=== PATIENT | female | born 1960 | race Caucasian/White ===

== ENCOUNTER → 2020-02-09 11:49 | Outpatient (CLI) | payer MEDICARE, SELFPAY ==
[2020-02-09 12:53] LABS: Add Manual Diff / Slide Review NO; Basophils Absolute Auto 0 /uL (0-100); Basophils Percent Auto 0.3 % (0-2); Eosinophils Absolute Auto 0 /uL (0-450); Eosinophils Percent Auto 0.3 % (2-4); Hematocrit 44.1 % (36-46); Hemoglobin 15.3 g/dL (12.0-16.0); Lymphocytes Absolute Auto 1300 /uL (1100-4500); Lymphocytes Percent Auto 22.4 % (25-40); Mean Corpuscular HGB Conc 34.7 % (30-36); Mean Corpuscular Hemoglobin 32.3 PG (26-34); Mean Corpuscular Volume 93.2 fL (80-100); Monocytes Absolute Auto 600 /uL (0-900); Monocytes Percent Auto 10.3 % (3-14); Neutrophils Absolute Auto 3800 /uL (1500-7000); Neutrophils Percent Auto 66.7 % (50-75); Platelet Count 183 X10^3/uL (150-400); Red Blood Cell Count 4.73 X10^6/uL (4.0-5.2); Red Cell Distribution Width 13.3 % (11.6-14.8); White Blood Cell Count 5.6 X10^3/uL (4.5-11.0)
[2020-02-09 13:15] LABS: Alanine Aminotransferase 19 IU/L (<35); Albumin 4.3 g/dL (3.5-5.0); Albumin Globulin Ratio 1.5 (1.0-2.8); Alkaline Phosphatase 95 U/L (38-126); Aspartate Aminotransferase 20 IU/L (14-36); BUN Creatinine Ratio 14.1 (6-22); Bilirubin Total 0.5 mg/dL (0.2-1.3); Blood Urea Nitrogen 10 mg/dL (7-17); Calcium 9.5 mg/dL (8.4-10.2); Carbon Dioxide 22 mmol/L (22-32); Chloride 103 mmol/L (98-107); Estimated Glomerular Filt Rate > 60.0 mL/min (>60); Globulin 2.8 g/dL (1.7-4.1); Glucose 108 mg/dL (80-110); HEMOLYSIS < 15 (0-50); Potassium 4.7 mmol/L (3.4-5.1); Sodium 135 mmol/L (137-145); Total Protein 7.1 g/dL (6.3-8.2)
[2020-02-09 13:34] LABS: TSH w/ Reflex to FT4 0.85 uIU/mL (0.47-4.68)
[2020-02-11 18:36] LABS: Deamidated Gliadin Ab IgA 3 units (0-19); Deamidated Gliadin Ab IgG 1 units (0-19); Immunoglobulin A,Qn 154 mg/dL (87-352); t-Transglutaminase IgA <2 U/mL (0-3)
== END ==
PROVIDERS: Family Provider Family Medicine; PCP Internal Medicine; Referring Provider Physician Assistant; Visit Provider Physician Assistant
DX: R19.7 Diarrhea, unspecified (principal); R19.8 Other specified symptoms and signs involving the digestive system and abdomen; Z83.79 Family history of other diseases of the digestive system
CPT/HCPCS: 36415; 80053; 82784; 83516; 84443; 85025

== ENCOUNTER → 2020-02-13 10:49 | Outpatient (CLI) | payer MEDICARE, SELFPAY ==
[2020-02-13 13:33] LABS: Adenovirus F 40/41 Not Detected (Not Detect); Astrovirus Not Detected (Not Detect); Campylobacter Not Detected (Not Detect); Clostridium difficile toxin AB Not Detected (Not Detect); Cryptosporidium Not Detected (Not Detect); Cyclospora cayetanensis Not Detected (Not Detect); Entamoeba histolytica Not Detected (Not Detect); Enteroaggregative E.coli Not Detected (Not Detect); Enteropathogenic E.coli Not Detected (Not Detect); Enterotoxigenic E.coli It/st Not Detected (Not Detect); Giardia lamblia Not Detected (Not Detect); Norovirus GI/GII Not Detected (Not Detect); Plesiomonsa shigelloides Not Detected (Not Detect); Rotavirus A Not Detected (Not Detect); Salmonella Not Detected (Not Detect); Sapovirus Not Detected (Not Detect); Shiga-like toxin-prod E.coli Not Detected (Not Detect); Shigella/Enteroinvasive E.coli Not Detected (Not Detect); Vibrio Not Detected (Not Detect); Vibrio cholerae Not Detected (Not Detect); Yersinia enterocolitica Not Detected (Not Detect)
== END ==
PROVIDERS: Family Provider Family Medicine; PCP Internal Medicine; Referring Provider Physician Assistant; Visit Provider Physician Assistant
DX: R19.7 Diarrhea, unspecified (principal)
CPT/HCPCS: 87507

== ENCOUNTER → 2020-03-13 09:52 | Outpatient (CLI) | payer MEDICARE, SELFPAY ==
[2020-03-13 10:46] LABS: BUN Creatinine Ratio 18.7 (6-22); Blood Urea Nitrogen 14 mg/dL (7-17); Calcium 9.6 mg/dL (8.4-10.2); Carbon Dioxide 22 mmol/L (22-32); Chloride 105 mmol/L (98-107); Cholesterol 180 mg/dL (140-199); Estimated Glomerular Filt Rate > 60.0 mL/min (>60); Glucose 114 mg/dL (80-110); HDL Cholesterol 30 mg/dL (40-60); HEMOLYSIS < 15 (0-50); LDL Cholesterol Calculated 100 mg/dL (<100); Sodium 137 mmol/L (137-145); Triglycerides 248 mg/dL (35-150)
[2020-03-13 12:13] LABS: TSH w/ Reflex to FT4 1.26 uIU/mL (0.47-4.68)
== END ==
PROVIDERS: Family Provider Family Medicine; PCP Internal Medicine; Referring Provider Internal Medicine; Visit Provider Internal Medicine
DX: I10 Essential (primary) hypertension (principal); Z13.220 Encounter for screening for lipoid disorders; E03.9 Hypothyroidism, unspecified
CPT/HCPCS: 36415; 80048; 80061; 84443

== ENCOUNTER → 2020-10-09 15:11 | Outpatient (CLI) | payer MEDICARE, SELFPAY ==
--- NOTE | 2020-10-09 15:14 | DI.MG.S_ITS ---
BILATERAL DIGITAL SCREENING MAMMOGRAM 3D/2D WITH CAD: 10/09/2020 CLINICAL: Routine screening. Comparison is made to exams dated: 10/06/2016 mammogram, 03/21/2013 mammogram, and 02/11/2010 mammogram - [facility]. The tissue of both breasts is predominantly fatty. Current study was also evaluated with a Computer Aided Detection (CAD) system. No significant masses, calcifications, or other findings are seen in either breast. There has been no significant interval change. IMPRESSION: NEGATIVE There is no mammographic evidence of malignancy. A 1 year screening mammogram is recommended. This exam was interpreted at Station ID: [id number]. NOTE: For mammograms, a report in lay terms will be sent to the patient. Approximately 15% of breast malignancies will not be visualized mammographically. In the management of a palpable breast mass, a negative mammogram must not discourage biopsy of a clinically suspicious lesion. Electronically Signed By: Melanie alvarez/ying:10/09/2020 16:44:09 letter sent: Normal Exam ACR BI-RADS Category 1: Negative [id number]
== END ==
PROVIDERS: Family Provider Family Medicine; PCP Internal Medicine; Referring Provider Internal Medicine; Visit Provider Internal Medicine
DX: Z12.31 Encounter for screening mammogram for malignant neoplasm of breast (principal); M85.852 Other specified disorders of bone density and structure, left thigh; Z78.0 Asymptomatic menopausal state; E07.9 Disorder of thyroid, unspecified; Z87.891 Personal history of nicotine dependence
CPT/HCPCS: 77063; 77067; 77080

== ENCOUNTER → 2021-02-26 13:34 | Outpatient (CLI) | payer MEDICARE, SELFPAY ==
[2021-02-26 13:42] LABS: Bacteria Urine None Seen; WBC Urine None Seen (0-5/HPF)
[2021-02-26 14:43] LABS: Appearance Urine UA CLEAR; Bilirubin Urine UA NEGATIVE (NEGATIVE); Color Urine UA YELLOW; Glucose Urine UA NEGATIVE (Negative); Ketones Urine UA NEGATIVE (NEGATIVE); Leukocyte Esterase Urine UA NEGATIVE (NEGATIVE); Nitrite Urine UA NEGATIVE (Negative); Occult Blood Urine UA 1+ (Negative); Protein Urine UA TRACE (Negative); Urobilinogen Urine UA 0.2 E.U./dL (0.2)
[2021-02-26 14:49] LABS: Culture Indicated Urine Cult Not Indicated; Mucus Urine 1+ (Negative); RBC Urine 5-10/HPF (0-5/HPF); Squamous Epithelial Cell Urine 10-30 /HPF (0-5/HPF)
== END ==
PROVIDERS: Family Provider Family Medicine; PCP Internal Medicine; Referring Provider Internal Medicine; Visit Provider Internal Medicine
DX: R30.0 Dysuria (principal)
CPT/HCPCS: 81001

== ENCOUNTER → 2021-08-12 12:25 | Outpatient (CLI) | payer MEDICARE, SELFPAY ==
--- NOTE | 2021-08-12 13:52 | DI.CT.S_ITS ---
PROCEDURE: CT ABDOMEN PELVIS W CON INDICATIONS: LOWER ABDOMINAL PAIN TECHNIQUE: After the administration of oral and IV contrast, axial sections were acquired from the lung bases to the pubic symphysis. Coronal and sagittal reformats were performed. For radiation dose reduction, the following was used: automated exposure control, adjustment of mA and/or kV according to patient size. COMPARISON: [facility], CT, ABD/PELVIS W/CON (PNL), 01/19/2014, 23:49. FINDINGS: Image quality: Excellent. Lung bases: Unremarkable. Heart: No significant findings. ABDOMEN: Liver: There are several ill-defined hypodensities of varying sizes throughout the liver, the larger measuring 2.9 cm in the lateral right hepatic lobe, and the largest in the left hepatic lobe measuring 2.1 cm. One of the lesions in segment III demonstrates peripheral puddling of contrast, and the other at are relatively hypodense postcontrast during the arterial phase. Gallbladder: There is Phrygian cap morphology. Normal wall thickness. Biliary ducts: Nondilated. Pancreas: Normal. Spleen: Normal size. Adrenal Glands: No nodules. Kidneys and Ureters: Normal enhancement. No hydronephrosis or hydroureter. Stomach and Bowel: Stomach, small bowel loops, and colon are unremarkable. The appendix is absent. Peritoneum: No abnormal intraperitoneal fluid. No free air. Ventral Wall: There are three small fat containing ventral hernias including an umbilical hernia in the midline. Abdominal Nodes: No retroperitoneal or mesenteric adenopathy by size criteria. Vessels: Aorta and inferior vena cava are normal in size. PELVIS: Pelvic Organs: Normal uterus and ovaries. Bladder: Normal wall thickness. Pelvic Nodes: No enlarged lymph nodes. Miscellaneous: No inguinal hernias are seen. Bones: There are severe degenerative disc changes throughout the lumbar spine and moderate endplate spurs at the L2-3 level. IMPRESSION: 1. No explanation for lower abdominal pain on the study. 2. There is been slight enlargement of several irregular hepatic hypodensities which have been otherwise relatively stable since 2013 suggesting benign etiology. The enhancement of one is most suggestive of a cavernous hemangioma. Dictated by: Melanie Bowman M.D. on 08/12/2021 at 14:49 Approved by: Melanie Bowman M.D. on 08/12/2021 at 15:02
== END ==
PROVIDERS: Family Provider Family Medicine; PCP Internal Medicine; Referring Provider Internal Medicine; Visit Provider Internal Medicine
DX: R10.30 Lower abdominal pain, unspecified (principal); K43.9 Ventral hernia without obstruction or gangrene
CPT/HCPCS: 74177

== ENCOUNTER 2022-01-24 10:30 | Outpatient (RCR) | payer OTHER, SELFPAY ==
--- NOTE | 2022-01-03 16:48 | PT.OPPOC ---
Physical, Occupational & Speech Therapy At [facility] Current Diagnoses Muscle weakness (generalized) (01/24/22) Other specified disorders of muscle (01/24/22) Mixed incontinence (01/24/22) Pelvic and perineal pain (01/24/22) Visit Care Team Role Provider Type Radha Weinberg MD Primary Care Provider Physician Specialty: Internal Medicine Address: [address] [place] [address], [address] Email: [email or web address] Gopi Jenkins DO Family Provider Non-Staff Specialty: Medical Address: [address] [place] [address], [address] Email: Ann Lowrey MD Attending Provider Physician Referring Provider Specialty: LAMINATOR PREFORMS Address: [address] [place] [address], [address] Email: [email or web address] Plan Of Care PT-OP-T Assessment and Plan Start: 01/02/22 17:42 Freq: Status: Active Protocol: Document 01/28/22 18:47 LRN (Rec: 01/03/22 10:40 LRN [id number]) Physical Therapy Assessment Rehab Potential Rehabilitation Potential Good Evaluation Complexity Number of Personal Factors/Comorbidities 3 or More Number of Body Systems Impaired 4 or More Clinical Presentation at Evaluation Evolving Impairments Impairments Activity Tolerance,Pain, Posture,ROM,Soft Tissue Mobility,Strength,Transfers Other Impairments Fecal incontinence, sometimes urinary incontinence Goals Four Impairment Stool/urine incontinence Short Term Goal (STG) To be able to leave house for extended periods of 1/2 hour or more without fear of having a need to have a BM and secondary urinary leakage. STG Duration 02/17/22 Auto Dealership Porter Goal (LTG) Reduce or eliminate symptoms of the PFDI-20 LTG Duration 04/03/22 Three Impairment PF/Lower Abdominal Pain rated 5/10 Short Term Goal (STG) Pt will understand the role of constipation & intra abdominal pressure changes on pelvic relaxation, and educated in a HEP of PF relaxation ex's. STG Duration 01/24/22 Intermediate Goal (LTG) Improve STM of lower abdomin/ PF to decrease lower abdomin/ PF pain to no greater than 2/ 10 on a HEP of abdominal strengthening program. LTG Duration 04/03/22 Two Impairment Abdominal weakness Short Term Goal (STG) Pt will be able to coordinate PF with thoracic diaphragm/ functional activities that cause symptoms of stool/urine incontinence. STG Duration 02/07/22 Intermediate Goal (LTG) Improve Abdominal/trunk & LE strength for optimal organ support with pt able to return to gym exercise. LTG Duration 04/03/22 One Impairment Lacks appropriate self care HEP Short Term Goal (STG) Pt will be educated in management of changes in intraabdominal pressure with appropriate PF muscle activation. STG Duration 01/17/22 Intermediate Goal (LTG) Pt will be able to manage symptoms with a HEP and behavioral techniques, and will be able to return to exercise (gentle yoga) with modifications as needed for managment of her fibromyalgia. LTG Duration 04/03/22 Assessment Summary Assessment Pt presents with reported improvement in her symptoms the past 1-2 months with the changing of her diet. She is not having urinary incontinence except she reports when her bladder is full. Her primary complaint is of potential fecal incontinence first in the morning and with a strong urge if she is not able to make it to the bathroom in time. The pt was red and tender in the perineum and did not tolerate internal assessment. She was not able to relax her pelvic floor for assessment. The vaginal opening tissues were red and very tender to light palpation. She did present tight and guarded and based on her subjective history it is expected that her GI system is greatly impacting her lower abdominal pain. Until I am able to relax her PF muscles, further assessment of involvement of PF weakness or tightness is deferred. The pt would benefit from treatment of the red and angry tissues at her vaginal opening and external perineum. The pt will benefit from skilled physical therapy to work towards achieving the above stated goals. Physical Therapy Plan Frequency and Duration Frequency of Treatment 1x/Week Plan of Care Start Date 01/03/22 Plan of Care End Date 04/03/22 Therapeutic Interventions Therapeutic Interventions Aquatic Therapy,Home Exercise Program,Joint Mobilizations, Manual Therapy,Neuromuscular Re-education,Patient/Caregiver Education,Self-Care/Home Management,Soft Tissue Mobilization,Therapeutic Activities,Therapeutic Exercises Modalities Biofeedback,Cold Pack/Ice Massage,Electric Stimulation, Hot Packs Next Visit Focus/Plan Next Note Type Treatment Note Next Visit Plan Manual therapy for lower abdominal/PF and STM to decreased tightness and pain. Pt education/ADL training: PF anatomy & function, bladder health & defecation/ micturition training. Therapeutic ex instruction for the PF/LE and trunk muscles with and without EMG biofeedback. Kinetic activities and neuromuscular reeducation to improve functional use of the PF in tasks that cause symptoms. Posterior PF strengthening. Plan of Care Dates Plan of Care Start Date 01/03/22 Plan of Care End Date 04/03/22 Electronically Signed by: Samira Reed, PT 01/28/22 [id number] If you are in agreement with this Plan of Care, please return a signed and dated copy. I have reviewed this Plan of Care and certify that the skilled therapy services above are required to meet the patient?s needs. Physician Signature Date Printed Name and Credentials Clinical Instructor Signature Printed Name and Credentials
--- NOTE | 2022-01-03 16:48 | PT.OIE ---
Current Diagnoses Muscle weakness (generalized) (01/24/22) Other specified disorders of muscle (01/24/22) Mixed incontinence (01/24/22) Pelvic and perineal pain (01/24/22) Visit Care Team Role Provider Type Radha Weinberg MD Primary Care Provider Physician Specialty: Internal Medicine Address: [address] [place] [address], [address] Email: [email or web address] Gopi Jenkins DO Family Provider Non-Staff Specialty: Medical Address: [address] [place] [address], [address] Email: Ann Lowery MD Attending Provider Physician Referring Provider Specialty: LYE PEEL OPERATOR Address: [address] [place] [address], [address] Email: [email or web address] Physical Therapy Initial Evaluation PT-OP-A Visit Information Start: 01/02/22 17:42 Freq: Status: Active Protocol: Document 01/28/22 18:47 LRN (Rec: 01/03/22 10:40 LRN [id number]) Out-Patient Physical Therapy Visit Information Visit Information Visit Type Initial Evaluation Visit Start Time 09:47 Visit Stop Time 10:39 Total Visit Minutes 52 Visit Number 1 Evaluation Information Evaluation Date 01/03/22 Precautions Precautions Arthritis, Fibromyalgia, Hemmorrhoids, arthritis, Osteopenia & some Osteoporosis in R hip, 3 level neck fusion (C3-C6), myomectomy fibroids removed - 1996, pilonidal cysts - early 1989', Controlled HBP, thyroid and parathyroid's removed in 2015 with a small cancer spot. PT-OP-B Current Condition Start: 01/02/22 17:42 Freq: Status: Active Protocol: Document 01/28/22 18:47 LRN (Rec: 01/03/22 10:40 LRN [id number]) Current Condition History of Current Condition Onset Date 06/2021 Current Complaints Pelvic pain History of Current Condition Was bleeding with bowel movements and CT scan showed everything was fine, but nothing improved. Tried elimination diet, but didn't help. Incontinence problem happened in Oct. and still had bloody stools, now thought due to hemorrhoids. Urinary incontinence is better, has primarily in morning. Bowel movement urge with stool incontinence if not able to get to bathroom (BR) right away (has had a couple times stool incontinence). Her lower abdominal pain and bowel urgency is worse first in the morning. Lifting is when abdomen hurts most. Her stomach inside feels swollen. She was told her endometrial lining is bigger than normal. Pt has had 1 vaginal and 1 C- section experience. Pt is R hand dominant. Prior Treatments and Tests Cancer test: negative. Self treatment of fiber and diet is helping. Future Testing and Treatments Planned None planned Developmental History Developmental History February 2020 End of Apr 2020 was walking and had problem with R hip and after a hike couldn't lift leg to apply brakes. She then stopped driving and instead went to pool to exercise and was swimming and doing gentle yoga. She then started to have trouble with incontinence of urine and stool. Treatment Goals Patient/Caregiver Goals Pt goals: To be able to leave house for extended periods of 1/2 hour or more without fear of having a need to have a BM and secondary urinary leakage. Learn ex to strength abdomen to return to ex at local gym Resume ex for managment of her fibromyalgia (gentle yoga class) Prior Functional Status Baseline Function- ADL's Independent Baseline Function- Mobility Independent Baseline Function- Recreation/Hobbies At most 3x/week: Gentle yoga class 2x/week, Pool 1x/week. Walking 1/2 mile 2x/week, working up to 2 miles 2x/week. Current Functional Impairments (Reported) Functional Limitations- ADL's Stopped yoga and pool ex for fear of fecal and urinary incontinence. Personal Factors Other Personal Factors That May Effect Fibromyalgia, Hemmorrhoids, Therapy/Recovery anxiety controlled by meds, osteoarthritis w/meds, 3 level neck fusion (C3-C6), myomectomy fibroids removed - 1996, pilonidal cysts - early 1989's, thyroid and parathyroid's removed in 2016 with a small cancer spot. PT-OP-C Subjective Start: 01/02/22 17:42 Freq: Status: Active Protocol: Document 01/28/22 18:47 LRN (Rec: 01/03/22 10:40 LRN [id number]) Patient Questionnaires Oswestry Low Back Index Oswestry Score 36 Oswestry Impairment 20 to 39% Impaired (Score 20- 39) Pelvic Pain and Urgency/Frequency Patient Symptom Scale Pelvic Pain Score 11 OP-PT Pain Assessment Location Neck Pain Location Details Posterior neck Intensity 5 Scale Used Numeric (0 - 10) Description Aching Lower abdomen Pain Location Details Across lower abdomen, worst first in AM Intensity 3 Scale Used Numeric (0 - 10) Description Aching Description- Other Like menstrual cramps Frequency Constant Variations/Patterns Intensity changes, more after BM. Pain Alleviating Factors Heat Low back Pain Location Details Low back, self fused L4-L5 Intensity 5 Frequency Constant PT-OP-I Pelvic Floor Start: 01/02/22 17:42 Freq: Status: Active Protocol: Document 01/28/22 18:47 LRN (Rec: 01/03/22 10:40 LRN [id number]) Pelvic Floor Assessment Urine Pelvic Floor Surgery No Other Urinary Symptoms Not leaking anymore, was 1-2 months ago Other Leakage Causes Sometimes if bladder is full. Leaks Per Day 0 Nocturia 2 Pads Used In 24 Hours Not anymore. Bowel Bowel Symptoms Fecal Leakage,Pain Other Bowel Symptoms Sometimes pain/cramping in abdomen Bowel Movement Frequency 2 [place] Stool Chart Type 1-7 4 Comments Pelvic Floor Comments Too tener to palpate external and jsut intoernal. PT-OP-J Posture/Palpation/Skin Start: 01/02/22 17:42 Freq: Status: Active Protocol: Document 01/28/22 18:47 LRN (Rec: 01/03/22 10:40 LRN [id number]) Posture Evaluation Position Standing L-Spine Posture Increased Lordosis Comments Posture Comments Dowagers Hump, L breast low. PT-OP-K Range of Motion Start: 01/02/22 17:42 Freq: Status: Active Protocol: Document 01/28/22 18:47 LRN (Rec: 01/03/22 10:40 LRN [id number]) Lumbar Spine Range of Motion Lumbar Spine Active Degrees Testing Position Standing Flexion 45 Extension 15 Rotation Left 20 Rotation Right 20 Lateral Flexion Left 0 Lateral Flexion Right 5 ROM Limitations Soft Tissue Tightness,Pain Hip Goniometric Range of Motion Hip Right Passive Testing Position Supine Straight Leg Raise 70 Internal Rotation 45 External Rotation 65 Left Passive Testing Position Supine Straight Leg Raise 90 Internal Rotation 25 External Rotation 65 PT-OP-M Strength Start: 01/02/22 17:42 Freq: Status: Active Protocol: Document 01/28/22 18:47 LRN (Rec: 01/03/22 10:40 LRN [id number]) Trunk Strength Trunk Manual Muscle Testing Core Stabilization Lacks poor core stability. Hip Strength Hip Manual Muscle Testing Right Flexion (L2) 4- Good- Abduction 5 Normal External Rotation 5 Normal Internal Rotation 5 Normal Left Flexion (L2) 3 Fair Adduction 1 Trace External Rotation 3+ Fair+ Internal Rotation 5 Normal PT-OP-Q Treatments Start: 01/02/22 17:42 Freq: Status: Active Protocol: Document 01/28/22 18:47 LRN (Rec: 01/03/22 10:40 LRN [id number]) Self-Care/Home Management Treatment Education Other Education Discussed results of evaluation, goals, and plan of care (POC). Pt agreeable to goals and POC. Pt educated in use of Bladder Diary and I/S in tracking for 1 week. Discussed use of 2 different diaries for tracking of bladder. PT-OP-T Assessment and Plan Start: 01/02/22 17:42 Freq: Status: Active Protocol: Document 01/28/22 18:47 LRN (Rec: 01/03/22 10:40 LRN [id number]) Physical Therapy Assessment Rehab Potential Rehabilitation Potential Good Evaluation Complexity Number of Personal Factors/Comorbidities 3 or More Number of Body Systems Impaired 4 or More Clinical Presentation at Evaluation Evolving Impairments Impairments Activity Tolerance,Pain, Posture,ROM,Soft Tissue Mobility,Strength,Transfers Other Impairments Fecal incontinence, sometimes urinary incontinence Goals Four Impairment Stool/urine incontinence Short Term Goal (STG) To be able to leave house for extended periods of 1/2 hour or more without fear of having a need to have a BM and secondary urinary leakage. STG Duration 02/17/22 Fdc Goal (LTG) Reduce or eliminate symptoms of the PFDI-20 LTG Duration 04/03/22 Three Impairment PF/Lower Abdominal Pain rated 5/10 Short Term Goal (STG) Pt will understand the role of constipation & intra abdominal pressure changes on pelvic relaxation, and educated in a HEP of PF relaxation ex's. STG Duration 01/24/22 [address] Supervisor Goal (LTG) Improve STM of lower abdomin/ PF to decrease lower abdomin/ PF pain to no greater than 2/ 10 on a HEP of abdominal strengthening program. LTG Duration 04/03/22 Two Impairment Abdominal weakness Short Term Goal (STG) Pt will be able to coordinate PF with thoracic diaphragm/ functional activities that cause symptoms of stool/urine incontinence. STG Duration 02/07/22 Fdc Goal (LTG) Improve Abdominal/trunk & LE strength for optimal organ support with pt able to return to gym exercise. LTG Duration 04/03/22 One Impairment Lacks appropriate self care HEP Short Term Goal (STG) Pt will be educated in management of changes in intraabdominal pressure with appropriate PF muscle activation. STG Duration 01/17/22 Fdc Goal (LTG) Pt will be able to manage symptoms with a HEP and behavioral techniques, and will be able to return to exercise (gentle yoga) with modifications as needed for managment of her fibromyalgia. LTG Duration 04/03/22 Assessment Summary Assessment Pt presents with reported improvement in her symptoms the past 1-2 months with the changing of her diet. She is not having urinary incontinence except she reports when her bladder is full. Her primary complaint is of potential fecal incontinence first in the morning and with a strong urge if she is not able to make it to the bathroom in time. The pt was red and tender in the perineum and did not tolerate internal assessment. She was not able to relax her pelvic floor for assessment. The vaginal opening tissues were red and very tender to light palpation. She did present tight and guarded and based on her subjective history it is expected that her GI system is greatly impacting her lower abdominal pain. Until I am able to relax her PF muscles, further assessment of involvement of PF weakness or tightness is deferred. The pt would benefit from treatment of the red and angry tissues at her vaginal opening and external perineum. The pt will benefit from skilled physical therapy to work towards achieving the above stated goals. Physical Therapy Plan Frequency and Duration Frequency of Treatment 1x/Week Plan of Care Start Date 01/03/22 Plan of Care End Date 04/03/22 Therapeutic Interventions Therapeutic Interventions Aquatic Therapy,Home Exercise Program,Joint Mobilizations, Manual Therapy,Neuromuscular Re-education,Patient/Caregiver Education,Self-Care/Home Management,Soft Tissue Mobilization,Therapeutic Activities,Therapeutic Exercises Modalities Biofeedback,Cold Pack/Ice Massage,Electric Stimulation, Hot Packs Next Visit Focus/Plan Next Note Type Treatment Note Next Visit Plan Manual therapy for lower abdominal/PF and STM to decreased tightness and pain. Pt education/ADL training: PF anatomy & function, bladder health & defecation/ micturition training. Therapeutic ex instruction for the PF/LE and trunk muscles with and without EMG biofeedback. Kinetic activities and neuromuscular reeducation to improve functional use of the PF in tasks that cause symptoms. Posterior PF strengthening.
--- NOTE | 2022-01-10 12:25 | PT.OTN ---
Current Diagnoses Muscle weakness (generalized) (01/10/22) Other specified disorders of muscle (01/10/22) Mixed incontinence (01/10/22) Pelvic and perineal pain (01/10/22) Physical Therapy Treatment Note PT-OP-A Visit Information Start: 01/02/22 17:42 Freq: Status: Active Protocol: Document 01/10/22 10:35 LRN (Rec: 01/10/22 12:24 LRN [id number]) Out-Patient Physical Therapy Visit Information Visit Information Visit Type Treatment Note Visit Start Time 10:35 Visit Stop Time 11:13 Total Visit Minutes 38 Visit Number 2 Evaluation Information Evaluation Date 01/03/22 Precautions Precautions Arthritis, Fibromyalgia, Hemmorrhoids, arthritis, Osteopenia & some Osteoporosis in R hip, 3 level neck fusion (C3-C6), myomectomy fibroids removed - 1996, pilonidal cysts - early 1989', Controlled HBP, thyroid and parathyroid's removed in 2015 with a small cancer spot. PT-OP-B Current Condition Start: 01/02/22 17:42 Freq: Status: Active Protocol: Document 01/03/22 09:47 LRN (Rec: 01/03/22 10:40 LRN [id number]) Current Condition History of Current Condition Onset Date 06/2021 Current Complaints Pelvic pain History of Current Condition Was bleeding with bowel movements and CT scan showed everything was fine, but nothing improved. Tried elimination diet, but didn't help. Incontinence problem happened in Oct. and still had bloody stools, now thought due to hemorrhoids. Urinary incontinence is better, has primarily in morning. Bowel movement urge with stool incontinence if not able to get to bathroom (BR) right away (has had a couple times stool incontinence). Her lower abdominal pain and bowel urgency is worse first in the morning. Lifting is when abdomen hurts most. Her stomach inside feels swollen. She was told her endometrial lining is bigger than normal. Pt has had 1 vaginal and 1 C- section experience. Pt is R hand dominant. Prior Treatments and Tests Cancer test: negative. Self treatment of fiber and diet is helping. Future Testing and Treatments Planned None planned Developmental History Developmental History February 2020 End of Apr 2020 was walking and had problem with R hip and after a hike couldn't lift leg to apply brakes. She then stopped driving and instead went to pool to exercise and was swimming and doing gentle yoga. She then started to have trouble with incontinence of urine and stool. Treatment Goals Patient/Caregiver Goals Pt goals: To be able to leave house for extended periods of 1/2 hour or more without fear of having a need to have a BM and secondary urinary leakage. Learn ex to strength abdomen to return to ex at local gym Resume ex for managment of her fibromyalgia (gentle yoga class) Prior Functional Status Baseline Function- ADL's Independent Baseline Function- Mobility Independent Baseline Function- Recreation/Hobbies At most 3x/week: Gentle yoga class 2x/week, Pool 1x/week. Walking 1/2 mile 2x/week, working up to 2 miles 2x/week. Current Functional Impairments (Reported) Functional Limitations- ADL's Stopped yoga and pool ex for fear of fecal and urinary incontinence. Personal Factors Other Personal Factors That May Effect Fibromyalgia, Hemmorrhoids, Therapy/Recovery anxiety controlled by meds, osteoarthritis w/meds, 3 level neck fusion (C3-C6), myomectomy fibroids removed - 1996, pilonidal cysts - early 1989', thyroid and parathyroid's removed in 2015 with a small cancer spot. PT-OP-C Subjective Start: 01/02/22 17:42 Freq: Status: Active Protocol: Document 01/10/22 10:35 LRN (Rec: 01/10/22 12:24 LRN [id number]) OP-PT Subjective Patient Comments Patient Comments States she feels she is better . One time leakage this week. PT-OP-I Pelvic Floor Start: 01/02/22 17:42 Freq: Status: Active Protocol: Document 01/03/22 09:47 LRN (Rec: 01/03/22 10:40 LRN [id number]) Pelvic Floor Assessment Urine Pelvic Floor Surgery No Other Urinary Symptoms Not leaking anymore, was 1-2 months ago Other Leakage Causes Sometimes if bladder is full. Leaks Per Day 0 Nocturia 2 Pads Used In 24 Hours Not anymore. Bowel Bowel Symptoms Fecal Leakage,Pain Other Bowel Symptoms Sometimes pain/cramping in abdomen Bowel Movement Frequency 2 [place] Stool Chart Type 1-7 4 Comments Pelvic Floor Comments Too tener to palpate external and jsut intoernal. PT-OP-J Posture/Palpation/Skin Start: 01/02/22 17:42 Freq: Status: Active Protocol: Document 01/03/22 09:47 LRN (Rec: 01/03/22 10:40 LRN [id number]) Posture Evaluation Position Standing L-Spine Posture Increased Lordosis Comments Posture Comments Dowagers Hump, L breast low. PT-OP-K Range of Motion Start: 01/02/22 17:42 Freq: Status: Active Protocol: Document 01/03/22 09:47 LRN (Rec: 01/03/22 10:40 LRN [id number]) Lumbar Spine Range of Motion Lumbar Spine Active Degrees Testing Position Standing Flexion 45 Extension 15 Rotation Left 20 Rotation Right 20 Lateral Flexion Left 0 Lateral Flexion Right 5 ROM Limitations Soft Tissue Tightness,Pain Hip Goniometric Range of Motion Hip Right Passive Testing Position Supine Straight Leg Raise 70 Internal Rotation 45 External Rotation 65 Left Passive Testing Position Supine Straight Leg Raise 90 Internal Rotation 25 External Rotation 65 PT-OP-M Strength Start: 01/02/22 17:42 Freq: Status: Active Protocol: Document 01/03/22 09:47 LRN (Rec: 01/03/22 10:40 LRN [id number]) Trunk Strength Trunk Manual Muscle Testing Core Stabilization Lacks poor core stability. Hip Strength Hip Manual Muscle Testing Right Flexion (L2) 4- Good- Abduction 5 Normal External Rotation 5 Normal Internal Rotation 5 Normal Left Flexion (L2) 3 Fair Adduction 1 Trace External Rotation 3+ Fair+ Internal Rotation 5 Normal PT-OP-Q Treatments Start: 01/02/22 17:42 Freq: Status: Active Protocol: Document 01/10/22 10:35 LRN (Rec: 01/10/22 12:24 LRN [id number]) Manual Therapy Treatment Soft Tissue Mobilization Lower abdominal scar Body Location Lower abdomen Mobilization Type Manual Lymphatic Drainage Intensity/Depth Moderate Body Position Hooklying Comments Pt reported no pain with mobilization today, possibly improved bowels of BM 1x/day has decreased pain. Bowel massage Body Location abdomen Mobilization Type Other Intensity/Depth Moderate Body Position Supine Comments ILU massage Self-Care/Home Management Treatment Education Other Education Reviewed bladder diary and discussed areas of improvement in water intake, fiber intake , how to avoid constipation and constipation effects on bladder and bowels. Pt education and discussion of bladder irritants. Pt Education and discussion of bowel massage. Activities Self-Care/Home Management Activities Issued & reviewed handouts for bladder irritants and bowel massage. PT-OP-T Assessment and Plan Start: 01/02/22 17:42 Freq: Status: Active Protocol: Document 01/10/22 10:35 LRN (Rec: 01/10/22 12:24 LRN [id number]) Physical Therapy Assessment Goals Four Impairment Stool/urine incontinence Short Term Goal (STG) To be able to leave house for extended periods of 1/2 hour or more without fear of having a need to have a BM and secondary urinary leakage. STG Duration 02/17/22 Care Home Goal (LTG) Reduce or eliminate symptoms of the PFDI-20 LTG Duration 04/03/22 Three Impairment PF/Lower Abdominal Pain rated 5/10 Short Term Goal (STG) Pt will understand the role of constipation & intra abdominal pressure changes on pelvic relaxation, and educated in a HEP of PF relaxation ex's. (01/10/22: Pt educated in the role of constipation on lower abdominal discomfort). STG Duration 01/24/22 (01/10/22: Progressed) Care Home Goal (LTG) Improve STM of lower abdomin/ PF to decrease lower abdomin/ PF pain to no greater than 2/ 10 on a HEP of abdominal strengthening program. LTG Duration 04/03/22 Two Impairment Abdominal weakness Short Term Goal (STG) Pt will be able to coordinate PF with thoracic diaphragm/ functional activities that cause symptoms of stool/urine incontinence. STG Duration 02/07/22 Care Home Goal (LTG) Improve Abdominal/trunk & LE strength for optimal organ support with pt able to return to gym exercise. LTG Duration 04/03/22 One Impairment Lacks appropriate self care HEP Short Term Goal (STG) Pt will be educated in management of changes in intraabdominal pressure with appropriate PF muscle activation. STG Duration 01/17/22 [employer] Consultant Goal (LTG) Pt will be able to manage symptoms with a HEP and behavioral techniques, and will be able to return to exercise (gentle yoga) with modifications as needed for managment of her fibromyalgia. LTG Duration 04/03/22 Assessment Summary Assessment Per bladder diary review pt fluid intake per day is 50 oz' s, but her recommended amount is 115 oz (weight 230#). It appears she is not eating a vegetable with every meal but she has added a fiber substitute to her day and is now having a daily BM that is normal stool (type 3-4) followed immediately by type 1 -3 type, indicating constipation. The pt is very receptive to adding more fluids, and fiber to her diet. Pt also appeared to have a good understanding of a bowel massage after education and treatment. Physical Therapy Plan Frequency and Duration Frequency of Treatment 1x/Week Plan of Care Start Date 01/03/22 Plan of Care End Date 04/03/22 Next Visit Focus/Plan Next Note Type Treatment Note Next Visit Plan Recheck for lower abdominal/PF and STM to decreased tightness and pain.0 Recheck Bladder diary and bowel massage. HEP of PF relaxation ex's. Pt education/ADL training: PF anatomy & function (intra abdominal pressure changes on pelvic relaxation), bladder health & defecation/ micturition training. Therapeutic ex instruction for the PF/LE and trunk muscles with and without EMG biofeedback. Kinetic activities and neuromuscular reeducation to improve functional use of the PF in tasks that cause symptoms. Posterior PF strengthening.
--- NOTE | 2022-01-17 16:26 | PT.OTN ---
Current Diagnoses Muscle weakness (generalized) (01/17/22) Other specified disorders of muscle (01/17/22) Mixed incontinence (01/17/22) Pelvic and perineal pain (01/17/22) Physical Therapy Treatment Note PT-OP-A Visit Information Start: 01/02/22 17:42 Freq: Status: Active Protocol: Document 01/17/22 10:34 LRN (Rec: 01/17/22 11:20 LRN [id number]) Out-Patient Physical Therapy Visit Information Visit Information Visit Type Treatment Note Visit Start Time 10:34 Visit Stop Time 11:16 Total Visit Minutes 42 Visit Number 3 Evaluation Information Evaluation Date 01/03/22 Precautions Precautions Arthritis, Fibromyalgia, Hemmorrhoids, arthritis, Osteopenia & some Osteoporosis in R hip, 3 level neck fusion (C3-C6), myomectomy fibroids removed - 1996, pilonidal cysts - early 1989', Controlled HBP, thyroid and parathyroid's removed in 2015 with a small cancer spot. PT-OP-B Current Condition Start: 01/02/22 17:42 Freq: Status: Active Protocol: Document 01/03/22 09:47 LRN (Rec: 01/03/22 10:40 LRN [id number]) Current Condition History of Current Condition Onset Date 06/2021 Current Complaints Pelvic pain History of Current Condition Was bleeding with bowel movements and CT scan showed everything was fine, but nothing improved. Tried elimination diet, but didn't help. Incontinence problem happened in Oct. and still had bloody stools, now thought due to hemorrhoids. Urinary incontinence is better, has primarily in morning. Bowel movement urge with stool incontinence if not able to get to bathroom (BR) right away (has had a couple times stool incontinence). Her lower abdominal pain and bowel urgency is worse first in the morning. Lifting is when abdomen hurts most. Her stomach inside feels swollen. She was told her endometrial lining is bigger than normal. Pt has had 1 vaginal and 1 C- section experience. Pt is R hand dominant. Prior Treatments and Tests Cancer test: negative. Self treatment of fiber and diet is helping. Future Testing and Treatments Planned None planned Developmental History Developmental History February 2020 End of Apr 2020 was walking and had problem with R hip and after a hike couldn't lift leg to apply brakes. She then stopped driving and instead went to pool to exercise and was swimming and doing gentle yoga. She then started to have trouble with incontinence of urine and stool. Treatment Goals Patient/Caregiver Goals Pt goals: To be able to leave house for extended periods of 1/2 hour or more without fear of having a need to have a BM and secondary urinary leakage. Learn ex to strength abdomen to return to ex at local gym Resume ex for managment of her fibromyalgia (gentle yoga class) Prior Functional Status Baseline Function- ADL's Independent Baseline Function- Mobility Independent Baseline Function- Recreation/Hobbies At most 3x/week: Gentle yoga class 2x/week, Pool 1x/week. Walking 1/2 mile 2x/week, working up to 2 miles 2x/week. Current Functional Impairments (Reported) Functional Limitations- ADL's Stopped yoga and pool ex for fear of fecal and urinary incontinence. Personal Factors Other Personal Factors That May Effect Fibromyalgia, Hemmorrhoids, Therapy/Recovery anxiety controlled by meds, osteoarthritis w/meds, 3 level neck fusion (C3-C6), myomectomy fibroids removed - 1996, pilonidal cysts - early 1989', thyroid and parathyroid's removed in 2015 with a small cancer spot. PT-OP-C Subjective Start: 01/02/22 17:42 Freq: Status: Active Protocol: Document 01/17/22 10:34 LRN (Rec: 01/17/22 11:20 LRN [id number]) OP-PT Subjective Patient Comments Patient Comments Leaking with more water drinking. Having to wiggins to get to the bathroom and a couple of times at night had accidents. Has to share a bathroom with 3 other people. Bowel massage has helped with gas and hasn't had as much lower abdominal cramping. Massages if cramping and then 10 minutes later can eliminate the reset. PT-OP-I Pelvic Floor Start: 01/02/22 17:42 Freq: Status: Active Protocol: Document 01/03/22 09:47 LRN (Rec: 01/03/22 10:40 LRN [id number]) Pelvic Floor Assessment Urine Pelvic Floor Surgery No Other Urinary Symptoms Not leaking anymore, was 1-2 months ago Other Leakage Causes Sometimes if bladder is full. Leaks Per Day 0 Nocturia 2 Pads Used In 24 Hours Not anymore. Bowel Bowel Symptoms Fecal Leakage,Pain Other Bowel Symptoms Sometimes pain/cramping in abdomen Bowel Movement Frequency 2 [place] Stool Chart Type 1-7 4 Comments Pelvic Floor Comments Too tener to palpate external and jsut intoernal. PT-OP-J Posture/Palpation/Skin Start: 01/02/22 17:42 Freq: Status: Active Protocol: Document 01/03/22 09:47 LRN (Rec: 01/03/22 10:40 LRN [id number]) Posture Evaluation Position Standing L-Spine Posture Increased Lordosis Comments Posture Comments Dowagers Hump, L breast low. PT-OP-K Range of Motion Start: 01/02/22 17:42 Freq: Status: Active Protocol: Document 01/03/22 09:47 LRN (Rec: 01/03/22 10:40 LRN [id number]) Lumbar Spine Range of Motion Lumbar Spine Active Degrees Testing Position Standing Flexion 45 Extension 15 Rotation Left 20 Rotation Right 20 Lateral Flexion Left 0 Lateral Flexion Right 5 ROM Limitations Soft Tissue Tightness,Pain Hip Goniometric Range of Motion Hip Right Passive Testing Position Supine Straight Leg Raise 70 Internal Rotation 45 External Rotation 65 Left Passive Testing Position Supine Straight Leg Raise 90 Internal Rotation 25 External Rotation 65 PT-OP-M Strength Start: 01/02/22 17:42 Freq: Status: Active Protocol: Document 01/03/22 09:47 LRN (Rec: 01/03/22 10:40 LRN [id number]) Trunk Strength Trunk Manual Muscle Testing Core Stabilization Lacks poor core stability. Hip Strength Hip Manual Muscle Testing Right Flexion (L2) 4- Good- Abduction 5 Normal External Rotation 5 Normal Internal Rotation 5 Normal Left Flexion (L2) 3 Fair Adduction 1 Trace External Rotation 3+ Fair+ Internal Rotation 5 Normal PT-OP-Q Treatments Start: 01/02/22 17:42 Freq: Status: Active Protocol: Document 01/17/22 10:34 LRN (Rec: 01/17/22 11:20 LRN [id number]) Manual Therapy Treatment Soft Tissue Mobilization Lower abdomen Body Location Bladder, uterus, GI, lg intestine descending colon Mobilization Type Myofascial Release,Sustained Pressure Body Position Supine Self-Care/Home Management Treatment Education Other Education Reviewed 2nd bladder diary and disussed timing of fluid intake for more in AM than PM, with meal-fiber intake, increasing fiber in diet, deep breathing during BM and wait for 2-3 breaths before BM ( education in role of constipation & intra abdominal pressure changes on pelvic relaxation). Discussed use of Bidet and alternatives for allowing for further transit of stool before finishing voiding session in bathroom. Discussed trying standing after cleaning/patting rectal region dry vs wiping, then trying to void again. Reviewed bowel massage and results of the massage. Discussed voiding frequency and possibilities of bladder retraining. PT-OP-T Assessment and Plan Start: 01/02/22 17:42 Freq: Status: Active Protocol: Document 01/17/22 10:34 LRN (Rec: 01/17/22 11:20 LRN [id number]) Physical Therapy Assessment Goals Four Impairment Stool/urine incontinence Short Term Goal (STG) To be able to leave house for extended periods of 1/2 hour or more without fear of having a need to have a BM and secondary urinary leakage. STG Duration 02/17/22 Alf Goal (LTG) Reduce or eliminate symptoms of the PFDI-20 LTG Duration 04/03/22 Three Impairment PF/Lower Abdominal Pain rated 5/10 Short Term Goal (STG) Pt will understand the role of constipation & intra abdominal pressure changes on pelvic relaxation, and educated in a HEP of PF relaxation ex's. (01/10/22: Pt educated in the role of constipation on lower abdominal discomfort). STG Duration 01/24/22 (01/10/22: Progressed) Shipping/Receiving Clerk Goal (LTG) Improve STM of lower abdomin/ PF to decrease lower abdomin/ PF pain to no greater than 2/ 10 on a HEP of abdominal strengthening program. LTG Duration 04/03/22 Two Impairment Abdominal weakness Short Term Goal (STG) Pt will be able to coordinate PF with thoracic diaphragm/ functional activities that cause symptoms of stool/urine incontinence. STG Duration 02/07/22 Alf Goal (LTG) Improve Abdominal/trunk & LE strength for optimal organ support with pt able to return to gym exercise. LTG Duration 04/03/22 One Impairment Lacks appropriate self care HEP Short Term Goal (STG) Pt will be educated in management of changes in intraabdominal pressure with appropriate PF muscle activation. STG Duration 01/17/22 Shipping/Receiving Clerk Goal (LTG) Pt will be able to manage symptoms with a HEP and behavioral techniques, and will be able to return to exercise (gentle yoga) with modifications as needed for managment of her fibromyalgia. LTG Duration 04/03/22 Assessment Summary Assessment Pt had mobility restriction of uterus and bladder with L rotation; GI/abdomen with superior and L lateral mobility of fascia; and L lateral trunk/Descending colon for superior and lateral mobility. Difficulty getting good abdominal mobilization due to pt overweight with BMI Physical Therapy Plan Frequency and Duration Frequency of Treatment 1x/Week Plan of Care Start Date 01/03/22 Plan of Care End Date 04/03/22 Next Visit Focus/Plan Next Note Type Treatment Note Next Visit Plan Assess BMI. Recheck Bladder diary and bowel massage. Assess change with increased water in AM, fiber with meal, 2nd BM w/deep breathing & after standing Bowel massage. Educate pt in use of proper breathing for transfers. Recheck for lower abdominal/PF and STM to decreased tightness and pain. HEP of PF relaxation ex's. Pt education/ADL training: PF anatomy & function (intra abdominal pressure changes on pelvic relaxation), bladder health & defecation/ micturition training. Therapeutic ex instruction for the PF/LE and trunk muscles with and without EMG biofeedback. Kinetic activities and neuromuscular reeducation to improve functional use of the PF in tasks that cause symptoms. Posterior PF strengthening.
--- NOTE | 2022-01-24 17:18 | PT.OTN ---
Current Diagnoses Muscle weakness (generalized) (01/24/22) Other specified disorders of muscle (01/24/22) Mixed incontinence (01/24/22) Pelvic and perineal pain (01/24/22) Physical Therapy Treatment Note PT-OP-A Visit Information Start: 01/02/22 17:42 Freq: Status: Active Protocol: Document 01/24/22 10:36 LRN (Rec: 01/24/22 11:21 LRN [id number]) Out-Patient Physical Therapy Visit Information Visit Information Visit Type Treatment Note Visit Start Time 10:36 Visit Stop Time 11:19 Total Visit Minutes 43 Visit Number 4 Evaluation Information Evaluation Date 01/03/22 Precautions Precautions BMI is 39.5 (>30 is Obese). Arthritis, Fibromyalgia, Hemmorrhoids, arthritis, Osteopenia & some Osteoporosis in R hip, 3 level neck fusion (C3-C6), myomectomy fibroids removed - 1996, pilonidal cysts - early 1989', Controlled HBP, thyroid and parathyroid's removed in 2015 with a small cancer spot. PT-OP-B Current Condition Start: 01/02/22 17:42 Freq: Status: Active Protocol: Document 01/03/22 09:47 LRN (Rec: 01/03/22 10:40 LRN [id number]) Current Condition History of Current Condition Onset Date 06/2021 Current Complaints Pelvic pain History of Current Condition Was bleeding with bowel movements and CT scan showed everything was fine, but nothing improved. Tried elimination diet, but didn't help. Incontinence problem happened in Oct. and still had bloody stools, now thought due to hemorrhoids. Urinary incontinence is better, has primarily in morning. Bowel movement urge with stool incontinence if not able to get to bathroom (BR) right away (has had a couple times stool incontinence). Her lower abdominal pain and bowel urgency is worse first in the morning. Lifting is when abdomen hurts most. Her stomach inside feels swollen. She was told her endometrial lining is bigger than normal. Pt has had 1 vaginal and 1 C- section experience. Pt is R hand dominant. Prior Treatments and Tests Cancer test: negative. Self treatment of fiber and diet is helping. Future Testing and Treatments Planned None planned Developmental History Developmental History February 2020 End of Apr 2020 was walking and had problem with R hip and after a hike couldn't lift leg to apply brakes. She then stopped driving and instead went to pool to exercise and was swimming and doing gentle yoga. She then started to have trouble with incontinence of urine and stool. Treatment Goals Patient/Caregiver Goals Pt goals: To be able to leave house for extended periods of 1/2 hour or more without fear of having a need to have a BM and secondary urinary leakage. Learn ex to strength abdomen to return to ex at local gym Resume ex for managment of her fibromyalgia (gentle yoga class) Prior Functional Status Baseline Function- ADL's Independent Baseline Function- Mobility Independent Baseline Function- Recreation/Hobbies At most 3x/week: Gentle yoga class 2x/week, Pool 1x/week. Walking 1/2 mile 2x/week, working up to 2 miles 2x/week. Current Functional Impairments (Reported) Functional Limitations- ADL's Stopped yoga and pool ex for fear of fecal and urinary incontinence. Personal Factors Other Personal Factors That May Effect Fibromyalgia, Hemmorrhoids, Therapy/Recovery anxiety controlled by meds, osteoarthritis w/meds, 3 level neck fusion (C3-C6), myomectomy fibroids removed - 1996, pilonidal cysts - early 1989', thyroid and parathyroid's removed in 2015 with a small cancer spot. PT-OP-C Subjective Start: 01/02/22 17:42 Freq: Status: Active Protocol: Document 01/24/22 10:36 LRN (Rec: 01/24/22 11:21 LRN [id number]) OP-PT Subjective Patient Comments Patient Comments Thinks she is better, thinks it is better taking fiber with food because not cramping as much and more on constipation side vs mushy side. Having less mushy stool. PT-OP-I Pelvic Floor Start: 01/02/22 17:42 Freq: Status: Active Protocol: Document 01/03/22 09:47 LRN (Rec: 01/03/22 10:40 LRN [id number]) Pelvic Floor Assessment Urine Pelvic Floor Surgery No Other Urinary Symptoms Not leaking anymore, was 1-2 months ago Other Leakage Causes Sometimes if bladder is full. Leaks Per Day 0 Nocturia 2 Pads Used In 24 Hours Not anymore. Bowel Bowel Symptoms Fecal Leakage,Pain Other Bowel Symptoms Sometimes pain/cramping in abdomen Bowel Movement Frequency 2 [place] Stool Chart Type 1-7 4 Comments Pelvic Floor Comments Too tener to palpate external and jsut intoernal. PT-OP-J Posture/Palpation/Skin Start: 01/02/22 17:42 Freq: Status: Active Protocol: Document 01/03/22 09:47 LRN (Rec: 01/03/22 10:40 LRN [id number]) Posture Evaluation Position Standing L-Spine Posture Increased Lordosis Comments Posture Comments Dowagers Hump, L breast low. PT-OP-K Range of Motion Start: 01/02/22 17:42 Freq: Status: Active Protocol: Document 01/03/22 09:47 LRN (Rec: 01/03/22 10:40 LRN [id number]) Lumbar Spine Range of Motion Lumbar Spine Active Degrees Testing Position Standing Flexion 45 Extension 15 Rotation Left 20 Rotation Right 20 Lateral Flexion Left 0 Lateral Flexion Right 5 ROM Limitations Soft Tissue Tightness,Pain Hip Goniometric Range of Motion Hip Right Passive Testing Position Supine Straight Leg Raise 70 Internal Rotation 45 External Rotation 65 Left Passive Testing Position Supine Straight Leg Raise 90 Internal Rotation 25 External Rotation 65 PT-OP-M Strength Start: 01/02/22 17:42 Freq: Status: Active Protocol: Document 01/03/22 09:47 LRN (Rec: 01/03/22 10:40 LRN [id number]) Trunk Strength Trunk Manual Muscle Testing Core Stabilization Lacks poor core stability. Hip Strength Hip Manual Muscle Testing Right Flexion (L2) 4- Good- Abduction 5 Normal External Rotation 5 Normal Internal Rotation 5 Normal Left Flexion (L2) 3 Fair Adduction 1 Trace External Rotation 3+ Fair+ Internal Rotation 5 Normal PT-OP-Q Treatments Start: 01/02/22 17:42 Freq: Status: Active Protocol: Document 01/24/22 10:36 LRN (Rec: 01/24/22 11:21 LRN [id number]) Therapeutic Exercises Supine Exercises Rolling side to side Supine Exercise Name Side to side rolling for PF training and use of proper breath Side bilateral Reps/Minutes 6' Comments Discussion, cuing and training needed Deep Breathing Supine Exercise Name Deep breathing timing - 7 secs Reps/Minutes 1' Comments Extra time to get timing of true deep breathing Breathing regular Supine Exercise Name Assessed for timing of PF holding during breaths. 3 sec for reg breath not Reps/Minutes 1' Comments Extra time to get timing of true regular breath Other Exercises PF w/Transfers Other Exercise Name PF/w transfers stand<>sit<> supine Reps/Minutes x3 Comments Training taking extra time Self-Care/Home Management Treatment Education Other Education Discussed bladder diary and stool consistency. Discussed bowel elimination with education of anatomy and discussion with recommendation of squatty potty. Discussed use of fiber, lower abdominal cramping and association posibbly of endometrial thickened lining. Discussed bowel massage timing and usage. Pt to try BM massage when cramping to see if it helps decrease cramp. Discussed if pt has difficulty having BM with a squatty potty, then do the bowel massage 1/2 - 1 hr after eating. Pt educated in management of changes in intraabdominal pressure with PF muscle activation. PT-OP-T Assessment and Plan Start: 01/02/22 17:42 Freq: Status: Active Protocol: Document 01/24/22 10:36 LRN (Rec: 01/24/22 11:21 LRN [id number]) Physical Therapy Assessment Goals Four Impairment Stool/urine incontinence Short Term Goal (STG) To be able to leave house for extended periods of 1/2 hour or more without fear of having a need to have a BM and secondary urinary leakage. STG Duration 02/17/22 Senior Care Goal (LTG) Reduce or eliminate symptoms of the PFDI-20 LTG Duration 04/03/22 Three Impairment PF/Lower Abdominal Pain rated 5/10 Short Term Goal (STG) Pt will understand the role of constipation & intra abdominal pressure changes on pelvic relaxation, and educated in a HEP of PF relaxation ex's. (01/10/22: Pt educated in the role of constipation on lower abdominal discomfort). (01/24/22: Pt educated in management of changes in intraabdominal pressure with PF muscle activation). STG Duration 01/24/22 (01/24/22: MET GOAL) Senior Care Goal (LTG) Improve STM of lower abdomin/ PF to decrease lower abdomin/ PF pain to no greater than 2/ 10 on a HEP of abdominal strengthening program. LTG Duration 04/03/22 Two Impairment Abdominal weakness Short Term Goal (STG) Pt will be able to coordinate PF with thoracic diaphragm/ functional activities that cause symptoms of stool/urine incontinence. STG Duration 02/07/22 Gas Tester Goal (LTG) Improve Abdominal/trunk & LE strength for optimal organ support with pt able to return to gym exercise. LTG Duration 04/03/22 One Impairment Lacks appropriate self care HEP Short Term Goal (STG) Pt will be educated in management of changes in intraabdominal pressure with appropriate PF muscle activation. STG Duration 01/17/22 (01/24/22: MET GOAL) Gas Tester Goal (LTG) Pt will be able to manage symptoms with a HEP and behavioral techniques, and will be able to return to exercise (gentle yoga) with modifications as needed for managment of her fibromyalgia. LTG Duration 04/03/22 Progress Towards Goals Progress Comments STG #1 & #3 MET. Assessment Summary Assessment Pt doing bowel massage when cramping and she thinks it might be helpful. Further assessment is needed. Pt's wgt is 230#, hgt 5'4; therefore BMI is 39.5 (>30 is Obese), which may hinder her progression towards decreasing her pelvic pain. Improvement noted in urinary and fecal leakage with increased water in AM and fiber with meal, improving her consistency of bowel movements. Pt noted on one incidence where she had a BM followed by a 2nd BM, and in-between she did deep breathing and a bowel massage, but did not have a difference in her being able to have a 2nd BM in a more timely fashion. Per bladder diary review, the pt is having regular 1x/day bowel movements and urinary voiding ~every 2 hours of short voids of 2-3 secs. Pt longest voids are 4- 7 sec first in the morning. Pt water intake (~36 oz) is < recommended 115 ounces for her weight. Further PF assessment needed when pt can tolerate palpation. Pt bladder appeared L rotated and decreased in mobility to the left. Improved after STM. Physical Therapy Plan Frequency and Duration Frequency of Treatment 1x/Week Plan of Care Start Date 01/03/22 Plan of Care End Date 04/03/22 Next Visit Focus/Plan Next Note Type Treatment Note Next Visit Plan Recheck response to squatty potty and if needed bowel massage. Review management of changes in intraabdominal pressure with PF muscle activation. Review use of proper breathing for transfers. Recheck for lower abdominal/PF and STM to decreased tightness and pain. HEP of ? PF relaxation ex's, assess for tenderness due to tightness or soft tissue irritation. Pt education/ADL training: bladder health & micturition training (urinary delay techinque). Therapeutic ex instruction for the PF/LE and trunk muscles with and without EMG biofeedback. Kinetic activities and neuromuscular reeducation to improve functional use of the PF in tasks that cause symptoms. Posterior PF strengthening.
--- NOTE | 2022-01-27 16:39 | PT.OPDS ---
Current Diagnoses Muscle weakness (generalized) (01/24/22) Other specified disorders of muscle (01/24/22) Mixed incontinence (01/24/22) Pelvic and perineal pain (01/24/22) Visit Care Team Role Provider Type Radha Weinberg MD Primary Care Provider Physician Specialty: Internal Medicine Address: [address] [place] [address], [id number] Email: [email or web address] Gopi Jenkins DO Family Provider Non-Staff Specialty: Medical Address: [address] [place] [address], [id number] Email: Ann Lowery MD Attending Provider Physician Referring Provider Specialty: INTERNAL SPECIALIST Address: [address] [place] [address], [id number] Email: [email or web address] Visit Number Visit Number 4 Discharge Summary PT-OP-B Current Condition Start: 01/02/22 17:42 Freq: Status: Active Protocol: Document 01/03/22 09:47 LRN (Rec: 01/03/22 10:40 LRN [id number]) Current Condition History of Current Condition Onset Date 06/2021 Current Complaints Pelvic pain History of Current Condition Was bleeding with bowel movements and CT scan showed everything was fine, but nothing improved. Tried elimination diet, but didn't help. Incontinence problem happened in Oct. and still had bloody stools, now thought due to hemorrhoids. Urinary incontinence is better, has primarily in morning. Bowel movement urge with stool incontinence if not able to get to bathroom (BR) right away (has had a couple times stool incontinence). Her lower abdominal pain and bowel urgency is worse first in the morning. Lifting is when abdomen hurts most. Her stomach inside feels swollen. She was told her endometrial lining is bigger than normal. Pt has had 1 vaginal and 1 C- section experience. Pt is R hand dominant. Prior Treatments and Tests Cancer test: negative. Self treatment of fiber and diet is helping. Future Testing and Treatments Planned None planned Developmental History Developmental History February 2020 End of Apr 2020 was walking and had problem with R hip and after a hike couldn't lift leg to apply brakes. She then stopped driving and instead went to pool to exercise and was swimming and doing gentle yoga. She then started to have trouble with incontinence of urine and stool. Treatment Goals Patient/Caregiver Goals Pt goals: To be able to leave house for extended periods of 1/2 hour or more without fear of having a need to have a BM and secondary urinary leakage. Learn ex to strength abdomen to return to ex at local gym Resume ex for managment of her fibromyalgia (gentle yoga class) Prior Functional Status Baseline Function- ADL's Independent Baseline Function- Mobility Independent Baseline Function- Recreation/Hobbies At most 3x/week: Gentle yoga class 2x/week, Pool 1x/week. Walking 1/2 mile 2x/week, working up to 2 miles 2x/week. Current Functional Impairments (Reported) Functional Limitations- ADL's Stopped yoga and pool ex for fear of fecal and urinary incontinence. Personal Factors Other Personal Factors That May Effect Fibromyalgia, Hemmorrhoids, Therapy/Recovery anxiety controlled by meds, osteoarthritis w/meds, 3 level neck fusion (C3-C6), myomectomy fibroids removed - 1996, pilonidal cysts - early 1989', thyroid and parathyroid's removed in 2015 with a small cancer spot. PT-OP-C Subjective Start: 01/02/22 17:42 Freq: Status: Active Protocol: Document 01/27/22 12:57 LRN (Rec: 01/27/22 16:38 LRN [id number]) OP-PT Subjective Patient Comments Patient Comments Message received that the pt was cancelling all appointments because therapy was no longer needed. Per phone pt states she thinks she has a handle on her HEP, but has another issue that is more important right now; therefore wanting discharge to focus on her other problem. PT-OP-I Pelvic Floor Start: 01/02/22 17:42 Freq: Status: Active Protocol: Document 01/03/22 09:47 LRN (Rec: 01/03/22 10:40 LRN [id number]) Pelvic Floor Assessment Urine Pelvic Floor Surgery No Other Urinary Symptoms Not leaking anymore, was 1-2 months ago Other Leakage Causes Sometimes if bladder is full. Leaks Per Day 0 Nocturia 2 Pads Used In 24 Hours Not anymore. Bowel Bowel Symptoms Fecal Leakage,Pain Other Bowel Symptoms Sometimes pain/cramping in abdomen Bowel Movement Frequency 2 [place] Stool Chart Type 1-7 4 Comments Pelvic Floor Comments Too tener to palpate external and jsut intoernal. PT-OP-J Posture/Palpation/Skin Start: 01/02/22 17:42 Freq: Status: Active Protocol: Document 01/03/22 09:47 LRN (Rec: 01/03/22 10:40 LRN [id number]) Posture Evaluation Position Standing L-Spine Posture Increased Lordosis Comments Posture Comments Dowagers Hump, L breast low. PT-OP-K Range of Motion Start: 01/02/22 17:42 Freq: Status: Active Protocol: Document 01/03/22 09:47 LRN (Rec: 01/03/22 10:40 LRN [id number]) Lumbar Spine Range of Motion Lumbar Spine Active Degrees Testing Position Standing Flexion 45 Extension 15 Rotation Left 20 Rotation Right 20 Lateral Flexion Left 0 Lateral Flexion Right 5 ROM Limitations Soft Tissue Tightness,Pain Hip Goniometric Range of Motion Hip Right Passive Testing Position Supine Straight Leg Raise 70 Internal Rotation 45 External Rotation 65 Left Passive Testing Position Supine Straight Leg Raise 90 Internal Rotation 25 External Rotation 65 PT-OP-M Strength Start: 01/02/22 17:42 Freq: Status: Active Protocol: Document 01/03/22 09:47 LRN (Rec: 01/03/22 10:40 LRN [id number]) Trunk Strength Trunk Manual Muscle Testing Core Stabilization Lacks poor core stability. Hip Strength Hip Manual Muscle Testing Right Flexion (L2) 4- Good- Abduction 5 Normal External Rotation 5 Normal Internal Rotation 5 Normal Left Flexion (L2) 3 Fair Adduction 1 Trace External Rotation 3+ Fair+ Internal Rotation 5 Normal PT-OP-T Assessment and Plan Start: 01/02/22 17:42 Freq: Status: Active Protocol: Document 01/27/22 12:57 LRN (Rec: 01/27/22 16:38 LRN [id number]) Physical Therapy Assessment Goals Four Impairment Stool/urine incontinence Short Term Goal (STG) To be able to leave house for extended periods of 1/2 hour or more without fear of having a need to have a BM and secondary urinary leakage. STG Duration 02/17/22 (01/27/22: Pt unavailable for final assessment) Senior Living Goal (LTG) Reduce or eliminate symptoms of the PFDI-20 LTG Duration 04/03/22 (01/27/22: Pt unavailable for final assessment) Three Impairment PF/Lower Abdominal Pain rated 5/10 Short Term Goal (STG) Pt will understand the role of constipation & intra abdominal pressure changes on pelvic relaxation, and educated in a HEP of PF relaxation ex's. (01/10/22: Pt educated in the role of constipation on lower abdominal discomfort). (01/24/22: Pt educated in management of changes in intraabdominal pressure with PF muscle activation). STG Duration 01/24/22 (01/24/22: MET GOAL) Machine Tool Technology Instructor Goal (LTG) Improve STM of lower abdomin/ PF to decrease lower abdomin/ PF pain to no greater than 2/ 10 on a HEP of abdominal strengthening program. LTG Duration 04/03/22 (01/27/22: Pt unavailable for final assessment) Two Impairment Abdominal weakness Short Term Goal (STG) Pt will be able to coordinate PF with thoracic diaphragm/ functional activities that cause symptoms of stool/urine incontinence. STG Duration 02/07/22 (01/27/22: Pt unavailable for final assessment) Senior Living Goal (LTG) Improve Abdominal/trunk & LE strength for optimal organ support with pt able to return to gym exercise. LTG Duration 04/03/22 (01/27/22: Pt unavailable for final assessment) One Impairment Lacks appropriate self care HEP Short Term Goal (STG) Pt will be educated in management of changes in intraabdominal pressure with appropriate PF muscle activation. STG Duration 01/17/22 (01/24/22: MET GOAL) Senior Living Goal (LTG) Pt will be able to manage symptoms with a HEP and behavioral techniques, and will be able to return to exercise (gentle yoga) with modifications as needed for managment of her fibromyalgia. LTG Duration 04/03/22 (01/27/22: Pt unavailable for final assessment) Assessment Summary Assessment Message was received that the pt called to cancel all remaining appointments today because therapy was no longer needed. The pt has another problem she is needing to focus on. Her last appointment was 01/24/22. She noted improvement in urinary and fecal leakage with increased water in AM and fiber with meal, improving her consistency of bowel movements. She was having regular 1x/day bowel movements and urinary voiding ~every 2 hours of short voids of 2-3 secs. Pt longest voids were 4 -7 secs first in the morning. Pt water intake was < recommended 115 ounces for normal hydration for her height & weight. Further PF therapy in the future would be beneficial for this pt to assess needed PF stretching vs strengthening to help with her urinary leakage and subsequent exercises. Physical Therapy Plan Discharge Physical Therapy Discharge Reasons Patient Request Discharge Comments Pt requested discharge with message left that therapy was no longer needed and she needs to focus on another problem.
== END 2022-01-29 13:49 ==
LOC: PHYS 10:30
PROVIDERS: Family Provider Family Medicine; PCP Internal Medicine; Referring Provider Specialist; Visit Provider Specialist
DX: N39.46 Mixed incontinence (principal); R10.2 Pelvic and perineal pain; M62.89 Other specified disorders of muscle; M62.81 Muscle weakness (generalized)
CPT/HCPCS: 97110; 97140; 97162; 97535

== ENCOUNTER → 2023-01-09 16:58 | Outpatient (ROUT) | payer OTHER, SELFPAY | PROVIDERS: Family Provider Family Medicine; PCP Family Medicine; Visit Provider Family Medicine | DX: N89.8 Other specified noninflammatory disorders of vagina (principal) | CPT/HCPCS: 87491; 87563; 87591; 87798 ==

== ENCOUNTER → 2023-01-15 09:15 | Outpatient (CLI) | payer OTHER, SELFPAY ==
[2023-01-15 11:44] LABS: Alanine Aminotransferase 17 IU/L (<35); Albumin 4.3 g/dL (3.5-5.0); Albumin Globulin Ratio 1.6 (1.0-2.8); Alkaline Phosphatase 87 U/L (38-126); Aspartate Aminotransferase 20 IU/L (14-36); BUN Creatinine Ratio 16.2 (6-22); Bilirubin Total 0.5 mg/dL (0.2-1.3); Blood Urea Nitrogen 12 mg/dL (7-17); Calcium 9.1 mg/dL (8.4-10.2); Carbon Dioxide 24 mmol/L (22-32); Chloride 102 mmol/L (98-107); Cholesterol 185 mg/dL (140-199); Estimated Glomerular Filt Rate > 60 mL/min (>60); Globulin 2.7 g/dL (1.7-4.1); Glucose 93 mg/dL (80-110); HDL Cholesterol 50 mg/dL (40-60); HEMOLYSIS < 15 (0-50); LDL Cholesterol Calculated 106 mg/dL (<100); Potassium 4.6 mmol/L (3.4-5.1); Sodium 136 mmol/L (137-145); Triglycerides 145 mg/dL (35-150)
[2023-01-15 11:45] LABS: Hematocrit 46.7 % (36-46); Hemoglobin 15.9 g/dL (12.0-16.0); Mean Corpuscular Hemoglobin 31.4 PG (26-34); Mean Corpuscular Volume 92.2 fL (80-100); Platelet Count 171 X10^3/uL (150-400); Red Blood Cell Count 5.06 X10^6/uL (4.0-5.2); White Blood Cell Count 6.4 X10^3/uL (4.5-11.0)
[2023-01-15 12:00] LABS: Vitamin D 25 Hydroxy (D3) 43.8 ng/mL (30.0-100.0)
[2023-01-15 12:13] LABS: TSH w/ Reflex to FT4 1.33 uIU/mL (0.47-4.68)
== END ==
PROVIDERS: Family Provider Family Medicine; PCP Family Medicine; Referring Provider Family Medicine; Visit Provider Family Medicine
DX: E55.9 Vitamin D deficiency, unspecified (principal); E78.5 Hyperlipidemia, unspecified; R53.83 Other fatigue
CPT/HCPCS: 36415; 80053; 80061; 82306; 84443; 85027

== ENCOUNTER → 2023-05-14 | Outpatient (CLI) | payer OTHER, SELFPAY ==
--- NOTE | 2023-05-14 | DI.MG.S_ITS ---
BILATERAL DIGITAL SCREENING MAMMOGRAM 3D/2D WITH CAD: 05/14/2023 CLINICAL: Routine screening. Comparison is made to exams dated: 10/09/2020 mammogram - [facility], 10/06/2016 mammogram, and 03/21/2013 mammogram - [facility]. Both breasts are almost entirely fatty (category a/<25% glandular tissue). Current study was also evaluated with a Computer Aided Detection (CAD) system. No significant masses, calcifications, or other findings are seen in either breast. There has been no significant interval change. IMPRESSION: NEGATIVE There is no mammographic evidence of malignancy. A 1 year screening mammogram is recommended. Based on the Tyrer Cuzick model (a risk assessment model) the patient's lifetime risk is 4.2% and her 10 year risk is 1.9%. According to the ACR, ACS, and NCCN guidelines, an annual breast MRI exam along with mammogram is recommended if the patient's lifetime risk is 20% or greater. This exam was interpreted at Station ID: [id number]. NOTE: For mammograms, a report in lay terms will be sent to the patient. Approximately 15% of breast malignancies will not be visualized mammographically. In the management of a palpable breast mass, a negative mammogram must not discourage biopsy of a clinically suspicious lesion. Electronically Signed By: Femi ro/ying:05/15/2023 14:18:42 letter sent: Normal Exam ACR BI-RADS Category 1: Negative [id number]
== END ==
PROVIDERS: Family Provider Family Medicine; PCP Family Medicine; Referring Provider Family Medicine; Visit Provider Family Medicine
DX: Z12.31 Encounter for screening mammogram for malignant neoplasm of breast (principal)
CPT/HCPCS: 77063; 77067

== ENCOUNTER → 2023-06-03 13:39 | Outpatient (CLI) | payer OTHER, SELFPAY ==
--- NOTE | 2023-06-03 13:50 | DI.CT.S_ITS ---
PROCEDURE: CT LUNG LOW DOSE SCREENING INDICATIONS: LUNG CANCER SCREENING TECHNIQUE: Noncontrast 2.0-2.5 mm thick sections acquired from the pulmonary apices to the posterior costophrenic angles. 7 mm thick axial MIP, and 5 mm coronal and sagittal reformats were then acquired. A low radiation dose technique was utilized. COMPARISON: None. FINDINGS: Image quality: Diagnostic, given the low radiation dose technique. Lungs and pleura: Occasional scattered punctate calcifications. No suspicious nodules or masses. Minor medial right middle lobe and lingular atelectasis. Faint subpleural bilateral lower lobe reticulation central and peripheral airways are patent. No pleural effusions or pleural calcification. Mediastinum: Heart size is normal. No pericardial effusion. No mediastinal adenopathy by size criteria. Thoracic aorta and central pulmonary arteries are normal in size. Esophagus is normal in caliber. No hiatal hernia. Bones and chest wall: No suspicious bony lesions. Focal degenerative endplate sclerosis in the midthoracic spine. Partially imaged anterior cervical fusion hardware. Multilevel disc height loss. No vertebral body compression fractures. No axillary or supraclavicular adenopathy by size criteria. Thyroid gland is surgically absent. Abdomen: Visualized upper abdomen solid organs and bowel loops appear normal in the absence of contrast. IMPRESSION: 1. No suspicious lung nodules. LUNG-RADS 1; Continue annual low-dose chest CT screening as long as the patient meets established criteria. Dictated by: Melanie Bowman M.D. on 06/03/2023 at 15:06 Approved by: Melanie Bowman M.D. on 06/03/2023 at 15:14
== END ==
PROVIDERS: Family Provider Family Medicine; PCP Family Medicine; Referring Provider Family Medicine; Visit Provider Family Medicine
DX: Z87.891 Personal history of nicotine dependence (principal); Z12.2 Encounter for screening for malignant neoplasm of respiratory organs
CPT/HCPCS: 71271

== ENCOUNTER → 2023-12-11 09:12 | Outpatient (CLI) | payer OTHER, SELFPAY ==
--- NOTE | 2023-12-11 09:14 | DI.RAD.S_ITS ---
PROCEDURE: XR HIP W PEL IF DONE [place] MIN 4V INDICATIONS: bilateral hip pain TECHNIQUE: AP pelvis with lateral view(s) of the bilateral hip(s). COMPARISON: [facility], CR, XR HIP 2 VIEWS BILATERAL, 04/21/2019, 11:01. FINDINGS: Bones: No fractures or dislocations. Mild degenerative changes of the bilateral hips with joint space narrowing and marginal spurring is similar to prior. Pelvic ring appears intact. Degenerative changes of the visualized lower lumbar spine and pubic symphysis. No suspicious bony lesions. Soft tissues: The visualized bowel gas pattern is normal. No suspicious soft tissue calcifications. IMPRESSION: No acute osseous abnormalities. Mild degenerative changes of the bilateral hips. Dictated by: Kailash Garrett M.D. on 12/11/2023 at 9:52 Approved by: Kailash Garrett M.D. on 12/11/2023 at 9:54
[2023-12-11 10:11] LABS: Add Manual Diff / Slide Review NO; Basophils Absolute Auto 0 /uL (0-100); Basophils Percent Auto 0.3 % (0-2); Eosinophils Absolute Auto 0 /uL (0-450); Eosinophils Percent Auto 0.4 % (2-4); Hematocrit 44.1 % (36-46); Lymphocytes Absolute Auto 1400 /uL (1100-4500); Lymphocytes Percent Auto 26.8 % (25-40); Mean Corpuscular Hemoglobin 32.2 PG (26-34); Mean Corpuscular Volume 94.7 fL (80-100); Monocytes Absolute Auto 500 /uL (0-900); Monocytes Percent Auto 9.3 % (3-14); Neutrophils Absolute Auto 3400 /uL (1500-7000); Neutrophils Percent Auto 63.2 % (50-75); Platelet Count 170 X10^3/uL (150-400); Red Blood Cell Count 4.66 X10^6/uL (4.0-5.2); Red Cell Distribution Width 15.1 % (11.6-14.8); White Blood Cell Count 5.4 X10^3/uL (4.5-11.0)
[2023-12-11 10:34] LABS: Alanine Aminotransferase 14 IU/L (<35); Albumin Globulin Ratio 1.5 (1.0-2.8); Alkaline Phosphatase 80 U/L (38-126); Aspartate Aminotransferase 20 IU/L (14-36); BUN Creatinine Ratio 16.9 (6-22); Bilirubin Total 0.7 mg/dL (0.2-1.3); Blood Urea Nitrogen 12 mg/dL (7-17); Calcium 9.2 mg/dL (8.4-10.2); Carbon Dioxide 22 mmol/L (22-32); Chloride 108 mmol/L (98-107); Cholesterol 184 mg/dL (140-199); Estimated Glomerular Filt Rate > 60 mL/min (>60); Globulin 2.7 g/dL (1.7-4.1); Glucose 97 mg/dL (80-110); HDL Cholesterol 53 mg/dL (40-60); HEMOLYSIS 18 (0-50); LDL Cholesterol Calculated 107 mg/dL (<100); Potassium 4.5 mmol/L (3.4-5.1); Sodium 138 mmol/L (137-145); Total Protein 6.7 g/dL (6.3-8.2); Triglycerides 118 mg/dL (35-150)
[2023-12-11 10:38] LABS: High Sensitivity CRP - Cardiac 6.8 mg/L (1.0-3.0)
[2023-12-11 11:01] LABS: TSH w/ Reflex to FT4 1.68 uIU/mL (0.47-4.68)
[2023-12-11 11:12] LABS: Creatinine Urine Random 153.2 mg/dL
[2023-12-11 11:16] LABS: Microalbumi Creatinin Ratio Ur 5.2 ug/mg CR (<30); Microalbumin Urine Random 0.8 mg/dL (0-1.6)
== END ==
PROVIDERS: Family Provider Family Medicine; PCP Family Medicine; Referring Provider Family Medicine; Visit Provider Family Medicine
DX: M25.551 Pain in right hip (principal); M25.552 Pain in left hip; E03.9 Hypothyroidism, unspecified; I10 Essential (primary) hypertension; E78.2 Mixed hyperlipidemia; R71.8 Other abnormality of red blood cells
CPT/HCPCS: 36415; 73522; 80053; 80061; 82043; 82570; 84443; 85025; 86140

== ENCOUNTER → 2023-12-15 14:31 | Outpatient (CLI) | payer OTHER, SELFPAY ==
--- NOTE | 2023-12-15 14:32 | DI.RAD.S_ITS ---
Bone Density Report Name: TRISTON WILSON Age: 63 Sex: Female Ethnicity: White Date of : 1960 Indication: postmenopausal; screening for osteoporosis; Referring Provider: HARVEY RAND Study: Bone densitometry was performed. Exam Date: December 15, 2023 Accession number: [id number] Bone Density: Region BMD T-score Z-score Classification AP Spine(L1-L4) 1.121 0.7 2.4 Normal Femoral Neck (Left) 0.703 -1.3 0.2 Osteopenia Total Hip (Left) 0.967 0.2 1.4 Normal Femoral Neck (Right) 0.667 -1.6 -0.2 Osteopenia Total Hip (Right) 0.950 0.1 1.3 Normal Total Hip Mean 0.958 0.2 1.4 Normal World Health Organization criteria for BMD impression classify patients as: Normal (T-score at or above -1.0), Osteopenia (T-score between -1.0 and -2.5), or Osteoporosis (T-score at or below -2.5). 10-year Fracture Risk(1): Major Osteoporotic Fracture 8.2% Hip Fracture 0.9% Reported Risk Factors: [place] (), Neck BMD=0.667, BMI=38.6 (1) FRAX(R) Version 3.08. Fracture probability calculated for an untreated patient. Fracture probability may be lower if the patient has received treatment. Previous Exams: -- Region Exam Age BMD T-score BMD Change BMD Change Date g/cm2 vs Baseline vs Previous -- AP Spine (L1-L4) 12/15/2023 63 1.121 0.7 -0.108 (-8.8%)# 0.011 (0.9%)# 10/09/2020 60 1.111 0.6 -0.118 (-9.6%)* -0.118 (-9.6%)* 04/22/2016 56 1.229 1.7 Total Hip(Left) 12/15/2023 63 0.967 0.2 0.016 (1.7%)# 0.028 (2.9%)# 10/09/2020 60 0.940 0.0 -0.012 (-1.2%) -0.012 (-1.2%) 04/22/2016 56 0.952 0.1 Total Hip(Right) 12/15/2023 63 0.950 0.1 0.032 (3.4%)# 0.031 (3.4%)# 10/09/2020 60 0.919 -0.2 0.001 (0.1%) 0.001 (0.1%) 04/22/2016 56 0.918 -0.2 -- *Denotes significance at 95% confidence level, LSC for AP Spine = 0.022 g/cm2, LSC for Total Hip = 0.027 g/cm2 # Denotes dissimilar scan types or analysis methods Impression: The patient has low bone mass, based on the Right Femoral Neck T-score. The patient has an estimated ten-year risk of hip fracture of 0.9% and an estimated ten-year risk of major fracture of 8.2%, based on the WHO FRAX algorithm. No significant bone loss was observed. Discussion: BONE DENSITY IS LOW AT ONE OR MORE SKELETAL SITES. This patient's lowest T-score is low at one or more skeletal sites. It meets the World Health Organization's (WHO) criteria for low bone mass (T-score between -1.0 and -2.5). The patient's 10-year risk of fracture as calculated by FRAX is less than the threshold where pharmacological therapy is recommended by the National Osteoporosis Foundation (NOF). However, all treatment decisions require clinical judgment and consideration of individual patient factors, including patient preferences, comorbidities, previous drug use, risk factors not captured in the FRAX model (e.g., frailty, falls, vitamin D deficiency, increased bone turnover, interval significant decline in bone density) and possible under or overestimation of fracture risk by FRAX. The patient should follow a healthful lifestyle (good nutrition with adequate calcium and vitamin D, and appropriate weight-bearing exercise). Follow-Up: Consider repeating this study in 2 to 3 years to reassess this patient's status, or sooner if there is some new clinical indication. Reported by: GHAZAL WADE MD on 12/15/2023 3:09:00 PM.
== END ==
PROVIDERS: Family Provider Family Medicine; PCP Family Medicine; Referring Provider Family Medicine; Visit Provider Family Medicine
DX: M85.89 Other specified disorders of bone density and structure, multiple sites (principal)
CPT/HCPCS: 77080

== ENCOUNTER 2024-01-28 11:15 | Outpatient (RCR) | payer OTHER, SELFPAY ==
--- NOTE | 2024-01-20 16:00 | PT.OPPOC ---
Physical, Occupational & Speech Therapy At [facility] Current Diagnoses Unspecified osteoarthritis, unspecified site (01/20/24) Pain in right hip (01/20/24) Pain in left hip (01/20/24) Visit Care Team Role Provider Type Gopi Jenkins DO Family Provider Non-Staff Specialty: Medical Address: [address] [place] [address], [place], [address] Email: Ela Murphy DO Attending Provider Physician Primary Care Provider Referring Provider Specialty: Medical Address: [address] [place] [address], [address], [place], [address] Email: [email or web address] Plan Of Care PT-OP-T Assessment and Plan Start: 01/20/24 16:40 Freq: Status: Active Protocol: Document 01/20/24 15:15 DCW (Rec: 01/21/24 12:08 DCW [id number]) Physical Therapy Assessment Rehab Potential Rehabilitation Potential Excellent Evaluation Complexity Number of Personal Factors/Comorbidities 3 or More Number of Body Systems Impaired 3 Clinical Presentation at Evaluation Evolving Impairments Impairments Activity Tolerance,Functional Activities,Functional Mobility ,Pain,Soft Tissue Mobility, Strength Goals Two Impairment Pt does not have an appropriate home exercise program Short Term Goal (STG) Pt to be independent and compliant with an appropriate HEP STG Duration 02/20/24 One Impairment Sleep disturbances affect pt significantly on a nightly basis due to pain Care Home Goal (LTG) Pt to report one full week only waking up two times each night secondary to hip pain LTG Duration 03/21/24 Assessment Summary Assessment Pt presents with signs and symptoms consistent with referring diagnosis of degenerative changes in the lumbar spine and bilateral hips. Pt notes improving pain over the course of the day as things loosen up, increased pain and stiffness with less movement. Pt states her goal is to learn stretches and exercises which may help speed up the process of loosening up in the morning, and maybe help decrease discomfort during the night. Pt's does admit her biggest limiting factor is holding herself accountable to actually performing her HEP. If pt is able to be compliant with her HEP, will likely do fairly well with focus on a straight- forward stretching and core/ hip strengthening routine. Pt noted that initial HEP provided was just what I'm looking for. May require multiple follow-ups for adjustments and additions of exercises, but expect to progress fairly quickly to an independent HEP. Physical Therapy Plan Frequency and Duration Frequency of Treatment 1-2x/week Plan of Care Start Date 01/20/24 Plan of Care End Date 03/21/24 Therapeutic Interventions Therapeutic Interventions Home Exercise Program,Joint Mobilizations,Manual Therapy, Neuromuscular Re-education, Patient/Caregiver Education, Self-Care/Home Management,Soft Tissue Mobilization, Therapeutic Activities, Therapeutic Exercises, Vestibular Rehabilitation Next Visit Focus/Plan Next Note Type Treatment Note Next Visit Plan Adjustments to HEP, core strengthening, hip mobility Plan of Care Dates Plan of Care Start Date 01/20/24 Plan of Care End Date 03/21/24 Electronically Signed by: Maldonado Nugent, PT 01/21/24 1269 If you are in agreement with this Plan of Care, please return a signed and dated copy. I have reviewed this Plan of Care and certify that the skilled therapy services above are required to meet the patient?s needs. Physician Signature Date Printed Name and Credentials Clinical Instructor Signature Printed Name and Credentials
--- NOTE | 2024-01-20 16:00 | PT.OIE ---
Current Diagnoses Unspecified osteoarthritis, unspecified site (01/20/24) Pain in right hip (01/20/24) Pain in left hip (01/20/24) Past Medical History (Last Updated 12/04/23 @ 16:12 by Ela Murphy DO) Anxiety (~2014) Cervical spine disease Chicken pox (~1964) Chronic back pain Eczema (~1974) Endometrial thickening on ultrasound (~12/04/21) Fibroids Fibromyalgia (~2011) Finger fracture (~2013) History of thyroid cancer HTN (hypertension) Internal hemorrhoids Irritable bowel syndrome Osteoarthritis (~1999) Osteoporosis Restless leg syndrome Thyroid cancer Past Surgical History (Last Updated 12/04/23 @ 16:16 by Ela Murphy DO) Anesthesia History of appendectomy (~2011) History of bunionectomy (~2004) History of section (~2004) History of thyroidectomy (~2015) Pilonidal cyst (~1989) S/P cervical spinal fusion (~2012) S/P subtotal parathyroidectomy Visit Care Team Role Provider Type Gopi Jenkins DO Family Provider Non-Staff Specialty: Medical Address: [address] [place] [address], [address] Email: Ela Murphy DO Attending Provider Physician Primary Care Provider Referring Provider Specialty: Medical Address: [address] [place] [address], [address], [address] Email: [email or web address] Physical Therapy Initial Evaluation PT-OP-A Visit Information Start: 01/20/24 16:40 Freq: Status: Active Protocol: Document 01/20/24 15:15 DCW (Rec: 01/20/24 16:46 DCW [id number]) Out-Patient Physical Therapy Visit Information Visit Information Visit Type Initial Evaluation Visit Start Time 15:15 Visit Stop Time 16:00 Visit Number 1 Number of ROUTEMAN Visits 0 Evaluation Information Evaluation Date 01/20/24 PT-OP-B Current Condition Start: 01/20/24 16:40 Freq: Status: Active Protocol: Document 01/20/24 15:15 DCW (Rec: 01/21/24 12:08 DCW [id number]) Current Condition History of Current Condition Onset Date Three year history Current Complaints Worsening hip pain, lumbar pain History of Current Condition Pt is a 63 year old female presenting with a three year history of worsening hip and back pain. Pt reports pain does not limit her ability to perform daily activities, mainly bothers her at night. Reports she'll sleep in one position until she has enough discomfort to wake her up, then flop around, get a new position, and then sleep until she wakes up again in pain, resulting in very poor sleep habits. Does admit that this has improved slightly since getting a C-PAP. Pt notes pain is very specifically in anterior hip/groin, right worse than left. Wakes up very stiff, tends to loosen up as the day goes on. Typically takes her dog for a walk around 10 am, which helps her get moving for the day. Admits she struggles with self- motivation, which is actually part of the reason she got a dog, to force her to get up and go for walks. Prior Treatments and Tests Hip X-ray: IMPRESSION: No acute osseous abnormalities. Mild degenerative changes of the bilateral hips. per Kailash Garrett M.D. on 12/11/2023 PT-OP-C Subjective Start: 01/20/24 16:40 Freq: Status: Active Protocol: Document 01/20/24 15:15 DCW (Rec: 01/20/24 16:46 DCW [id number]) OP-PT Subjective Patient Comments Patient Comments It's really been effecting my sleep. Patient Reported Progress Worse Patient Questionnaires Lower Extremity Functional Scale LEFS Score 48/80 = 60% LEFS Impairment 20 to 39% Impaired (Score 48- 62) PT-OP-F Manual Assessment Start: 01/20/24 16:40 Freq: Status: Active Protocol: Document 01/20/24 15:15 DCW (Rec: 01/21/24 09:43 DCW [id number]) Manual Assessments Soft Tissue Assessment Soft Tissue Mobility Assessment General soreness with tenderness to palpation 2/4: pain with wincing along hip flexors, abductors, glutes, and ITB. Joint Mobility Assessment Joint Mobility Assessment Limitations of lumbar mobility secondary to spontaneous fusion of L4-5 PT-OP-L Special Tests Start: 01/20/24 16:40 Freq: Status: Active Protocol: Document 01/20/24 15:15 DCW (Rec: 01/21/24 09:43 [facility] [id number]) Special Tests Lumbar Spine Special Tests A-P Shearing Test Results Negative Hip Special Tests LE Traction Test Results Relief Straight Leg Raise Test Results Negative Scour Test Test Results Negative JOAQUIN Test Results Negative PT-OP-M Strength Start: 01/20/24 16:40 Freq: Status: Active Protocol: Document 01/20/24 15:15 DCW (Rec: 01/21/24 09:43 [facility] [id number]) Hip Strength Hip Manual Muscle Testing Right Flexion (L2) 4- Good- Abduction 4- Good- Adduction 4- Good- External Rotation 4+ Good+ Internal Rotation 4 Good Left Flexion (L2) 4 Good Abduction 4- Good- Adduction 4- Good- External Rotation 4+ Good+ Internal Rotation 4+ Good+ Knee Strength Knee Manual Muscle Testing Right Flexion (S2) 4+ Good+ Extension (L3) 4 Good Left Flexion (S2) 4+ Good+ Extension (L3) 4 Good PT-OP-Q Treatments Start: 01/20/24 16:40 Freq: Status: Active Protocol: Document 01/20/24 15:15 DCW (Rec: 01/20/24 16:46 [facility] [id number]) Therapeutic Exercises Supine Exercises Piriformis Supine Exercise Name Knee to opposite shoulder Comments HEP Hip Flexors Supine Exercise Name Hip flexor stretch - leg off table Comments HEP LTR Supine Exercise Name LTR Comments HEP Sidelying Exercises Clamshell Sidelying Exercise Name Clamshell Comments HEP Open Book Sidelying Exercise Name Open Book Comments HEP PT-OP-T Assessment and Plan Start: 01/20/24 16:40 Freq: Status: Active Protocol: Document 01/20/24 15:15 DCW (Rec: 01/21/24 12:08 [facility] [id number]) Physical Therapy Assessment Rehab Potential Rehabilitation Potential Excellent Evaluation Complexity Number of Personal Factors/Comorbidities 3 or More Number of Body Systems Impaired 3 Clinical Presentation at Evaluation Evolving Impairments Impairments Activity Tolerance,Functional Activities,Functional Mobility ,Pain,Soft Tissue Mobility, Strength Goals Two Impairment Pt does not have an appropriate home exercise program Short Term Goal (STG) Pt to be independent and compliant with an appropriate HEP STG Duration 02/20/24 One Impairment Sleep disturbances affect pt significantly on a nightly basis due to pain Mcc Goal (LTG) Pt to report one full week only waking up two times each night secondary to hip pain LTG Duration 03/21/24 Assessment Summary Assessment Pt presents with signs and symptoms consistent with referring diagnosis of degenerative changes in the lumbar spine and bilateral hips. Pt notes improving pain over the course of the day as things loosen up, increased pain and stiffness with less movement. Pt states her goal is to learn stretches and exercises which may help speed up the process of loosening up in the morning, and maybe help decrease discomfort during the night. Pt's does admit her biggest limiting factor is holding herself accountable to actually performing her HEP. If pt is able to be compliant with her HEP, will likely do fairly well with focus on a straight- forward stretching and core/ hip strengthening routine. Pt noted that initial HEP provided was just what I'm looking for. May require multiple follow-ups for adjustments and additions of exercises, but expect to progress fairly quickly to an independent HEP. Physical Therapy Plan Frequency and Duration Frequency of Treatment 1-2x/week Plan of Care Start Date 01/20/24 Plan of Care End Date 03/21/24 Therapeutic Interventions Therapeutic Interventions Home Exercise Program,Joint Mobilizations,Manual Therapy, Neuromuscular Re-education, Patient/Caregiver Education, Self-Care/Home Management,Soft Tissue Mobilization, Therapeutic Activities, Therapeutic Exercises, Vestibular Rehabilitation Next Visit Focus/Plan Next Note Type Treatment Note Next Visit Plan Adjustments to HEP, core strengthening, hip mobility
--- NOTE | 2024-01-22 15:09 | PT.OTN ---
Current Diagnoses Unspecified osteoarthritis, unspecified site (01/22/24) Pain in right hip (01/22/24) Pain in left hip (01/22/24) Physical Therapy Treatment Note PT-OP-A Visit Information Start: 01/20/24 16:40 Freq: Status: Active Protocol: Document 01/22/24 14:33 DCW (Rec: 01/22/24 15:09 DC [id number]) Out-Patient Physical Therapy Visit Information Visit Information Visit Type Treatment Note Visit Start Time 14:33 Visit Stop Time 15:00 Visit Number 2 Number of ASL INTERPRETER Visits 0 Evaluation Information Evaluation Date 01/20/24 PT-OP-B Current Condition Start: 01/20/24 16:40 Freq: Status: Active Protocol: Document 01/20/24 15:15 DCW (Rec: 01/21/24 12:08 DCW [id number]) Current Condition History of Current Condition Onset Date Three year history Current Complaints Worsening hip pain, lumbar pain History of Current Condition Pt is a 63 year old female presenting with a three year history of worsening hip and back pain. Pt reports pain does not limit her ability to perform daily activities, mainly bothers her at night. Reports she'll sleep in one position until she has enough discomfort to wake her up, then flop around, get a new position, and then sleep until she wakes up again in pain, resulting in very poor sleep habits. Does admit that this has improved slightly since getting a C-PAP. Pt notes pain is very specifically in anterior hip/groin, right worse than left. Wakes up very stiff, tends to loosen up as the day goes on. Typically takes her dog for a walk around 10 am, which helps her get moving for the day. Admits she struggles with self- motivation, which is actually part of the reason she got a dog, to force her to get up and go for walks. Prior Treatments and Tests Hip X-ray: IMPRESSION: No acute osseous abnormalities. Mild degenerative changes of the bilateral hips. per Kailash Garrett M.D. on 12/11/2023 PT-OP-C Subjective Start: 01/20/24 16:40 Freq: Status: Active Protocol: Document 01/22/24 14:33 DCW (Rec: 01/22/24 15:09 [facility] [id number]) OP-PT Subjective Patient Comments Patient Comments I think it's working, but I' ve been paying attention, and it feels like it locks up right here...(points to area of L4-5). PT-OP-F Manual Assessment Start: 01/20/24 16:40 Freq: Status: Active Protocol: Document 01/20/24 15:15 DCW (Rec: 01/21/24 09:43 DCW [id number]) Manual Assessments Soft Tissue Assessment Soft Tissue Mobility Assessment General soreness with tenderness to palpation 2/4: pain with wincing along hip flexors, abductors, glutes, and ITB. Joint Mobility Assessment Joint Mobility Assessment Limitations of lumbar mobility secondary to spontaneous fusion of L4-5 PT-OP-L Special Tests Start: 01/20/24 16:40 Freq: Status: Active Protocol: Document 01/20/24 15:15 DCW (Rec: 01/21/24 09:43 DCW [id number]) Special Tests Lumbar Spine Special Tests A-P Shearing Test Results Negative Hip Special Tests LE Traction Test Results Relief Straight Leg Raise Test Results Negative Scour Test Test Results Negative JOAQUIN Test Results Negative PT-OP-M Strength Start: 01/20/24 16:40 Freq: Status: Active Protocol: Document 01/20/24 15:15 DCW (Rec: 01/21/24 09:43 DCW [id number]) Hip Strength Hip Manual Muscle Testing Right Flexion (L2) 4- Good- Abduction 4- Good- Adduction 4- Good- External Rotation 4+ Good+ Internal Rotation 4 Good Left Flexion (L2) 4 Good Abduction 4- Good- Adduction 4- Good- External Rotation 4+ Good+ Internal Rotation 4+ Good+ Knee Strength Knee Manual Muscle Testing Right Flexion (S2) 4+ Good+ Extension (L3) 4 Good Left Flexion (S2) 4+ Good+ Extension (L3) 4 Good PT-OP-Q Treatments Start: 01/20/24 16:40 Freq: Status: Active Protocol: Document 01/22/24 14:33 DCW (Rec: 01/22/24 15:09 DCW [id number]) Therapeutic Exercises Sitting Exercises Trunk Flexion Sitting Exercise Name Trunk Flexion Equipment Used /c and /s T-ball Piriformis Sitting Exercise Name Seated Figure-4 Standing Exercises Hip flexor Standing Exercise Name Half-knee Hip Flexor stretch Other Exercises Tail Wag Other Exercise Name Quadruped Tail Wag Child's Pose Other Exercise Name Quadruped Child's Pose Cat/Camel Other Exercise Name Quadruped Cat/Camel PT-OP-T Assessment and Plan Start: 01/20/24 16:40 Freq: Status: Active Protocol: Document 01/22/24 14:33 DCW (Rec: 01/22/24 15:09 DCW [id number]) Physical Therapy Assessment Impairments Impairments Activity Tolerance,Functional Activities,Functional Mobility ,Pain,Soft Tissue Mobility, Strength Goals Two Impairment Pt does not have an appropriate home exercise program Short Term Goal (STG) Pt to be independent and compliant with an appropriate HEP STG Duration 02/20/24 One Impairment Sleep disturbances affect pt significantly on a nightly basis due to pain Alf Goal (LTG) Pt to report one full week only waking up two times each night secondary to hip pain LTG Duration 03/21/24 Assessment Summary Assessment Review and addition/refinement of ongoing HEP. Pt feels comfortable with this plan going forward, has been moderately compliant with HEP over past two days. Pt agreeable to plan of canceling next visit, giving her one week to adjust to HEP, return next visit for follow up. Physical Therapy Plan Frequency and Duration Frequency of Treatment 1-2x/week Plan of Care Start Date 01/20/24 Plan of Care End Date 03/21/24 Therapeutic Interventions Therapeutic Interventions Home Exercise Program,Joint Mobilizations,Manual Therapy, Neuromuscular Re-education, Patient/Caregiver Education, Self-Care/Home Management,Soft Tissue Mobilization, Therapeutic Activities, Therapeutic Exercises, Vestibular Rehabilitation Next Visit Focus/Plan Next Note Type Treatment Note Next Visit Plan Adjustments to HEP, core strengthening, hip mobility
--- NOTE | 2024-01-28 11:38 | PT.OTN ---
Current Diagnoses Unspecified osteoarthritis, unspecified site (01/28/24) Pain in right hip (01/28/24) Pain in left hip (01/28/24) Physical Therapy Treatment Note PT-OP-A Visit Information Start: 01/20/24 16:40 Freq: Status: Active Protocol: Document 01/28/24 11:15 DCW (Rec: 01/28/24 11:38 [facility] [id number]) Out-Patient Physical Therapy Visit Information Visit Information Visit Type Discharge Summary Visit Start Time 11:15 Visit Stop Time 11:32 Visit Number 3 Number of TITLE COORDINATOR Visits 0 Evaluation Information Evaluation Date 01/20/24 PT-OP-B Current Condition Start: 01/20/24 16:40 Freq: Status: Active Protocol: Document 01/20/24 15:15 DCW (Rec: 01/21/24 12:08 DCW [id number]) Current Condition History of Current Condition Onset Date Three year history Current Complaints Worsening hip pain, lumbar pain History of Current Condition Pt is a 63 year old female presenting with a three year history of worsening hip and back pain. Pt reports pain does not limit her ability to perform daily activities, mainly bothers her at night. Reports she'll sleep in one position until she has enough discomfort to wake her up, then flop around, get a new position, and then sleep until she wakes up again in pain, resulting in very poor sleep habits. Does admit that this has improved slightly since getting a C-PAP. Pt notes pain is very specifically in anterior hip/groin, right worse than left. Wakes up very stiff, tends to loosen up as the day goes on. Typically takes her dog for a walk around 10 am, which helps her get moving for the day. Admits she struggles with self- motivation, which is actually part of the reason she got a dog, to force her to get up and go for walks. Prior Treatments and Tests Hip X-ray: IMPRESSION: No acute osseous abnormalities. Mild degenerative changes of the bilateral hips. per Kailash Garrett M.D. on 12/11/2023 PT-OP-C Subjective Start: 01/20/24 16:40 Freq: Status: Active Protocol: Document 01/28/24 11:15 DCW (Rec: 01/28/24 11:38 [facility] [id number]) OP-PT Subjective Patient Comments Patient Comments Some days I think it's better , some days I'm not sure. I went walking this morning, and had more pain along the front of my thigh. PT-OP-F Manual Assessment Start: 01/20/24 16:40 Freq: Status: Active Protocol: Document 01/20/24 15:15 DCW (Rec: 01/21/24 09:43 DCW [id number]) Manual Assessments Soft Tissue Assessment Soft Tissue Mobility Assessment General soreness with tenderness to palpation 2/4: pain with wincing along hip flexors, abductors, glutes, and ITB. Joint Mobility Assessment Joint Mobility Assessment Limitations of lumbar mobility secondary to spontaneous fusion of L4-5 PT-OP-L Special Tests Start: 01/20/24 16:40 Freq: Status: Active Protocol: Document 01/20/24 15:15 DCW (Rec: 01/21/24 09:43 DCW [id number]) Special Tests Lumbar Spine Special Tests A-P Shearing Test Results Negative Hip Special Tests LE Traction Test Results Relief Straight Leg Raise Test Results Negative Scour Test Test Results Negative JOAQUIN Test Results Negative PT-OP-M Strength Start: 01/20/24 16:40 Freq: Status: Active Protocol: Document 01/20/24 15:15 DCW (Rec: 01/21/24 09:43 DCW [id number]) Hip Strength Hip Manual Muscle Testing Right Flexion (L2) 4- Good- Abduction 4- Good- Adduction 4- Good- External Rotation 4+ Good+ Internal Rotation 4 Good Left Flexion (L2) 4 Good Abduction 4- Good- Adduction 4- Good- External Rotation 4+ Good+ Internal Rotation 4+ Good+ Knee Strength Knee Manual Muscle Testing Right Flexion (S2) 4+ Good+ Extension (L3) 4 Good Left Flexion (S2) 4+ Good+ Extension (L3) 4 Good PT-OP-Q Treatments Start: 01/20/24 16:40 Freq: Status: Active Protocol: Document 01/28/24 11:15 DCW (Rec: 01/28/24 11:38 DCW [id number]) Therapeutic Exercises Supine Exercises KtC Supine Exercise Name Single KtC Side bilateral Hamstring Supine Exercise Name Hamstring Stretch Side bilateral Sitting Exercises Quads Sitting Exercise Name Self-rolling Quads Standing Exercises Quads Standing Exercise Name Standing Quad stretch PT-OP-T Assessment and Plan Start: 01/20/24 16:40 Freq: Status: Active Protocol: Document 01/28/24 11:15 DCW (Rec: 01/28/24 11:38 DC [id number]) Physical Therapy Assessment Impairments Impairments Activity Tolerance,Functional Activities,Functional Mobility ,Pain,Soft Tissue Mobility, Strength Goals Two Impairment Pt does not have an appropriate home exercise program Short Term Goal (STG) Pt to be independent and compliant with an appropriate HEP STG Duration 02/20/24 One Impairment Sleep disturbances affect pt significantly on a nightly basis due to pain Coordinator Of Genetic Services Goal (LTG) Pt to report one full week only waking up two times each night secondary to hip pain LTG Duration 03/21/24 Assessment Summary Assessment Pt feeling comfortable with home exercises, admits she may have just been stretching too forcefully and causing cramping. Discussed importance of gentle stretch, as well as holding stretch for appropriate length of time. Pt agreeable to discharge to independent HEP at this time. Physical Therapy Plan Frequency and Duration Frequency of Treatment 1-2x/week Plan of Care Start Date 01/20/24 Plan of Care End Date 03/21/24 Therapeutic Interventions Therapeutic Interventions Home Exercise Program,Joint Mobilizations,Manual Therapy, Neuromuscular Re-education, Patient/Caregiver Education, Self-Care/Home Management,Soft Tissue Mobilization, Therapeutic Activities, Therapeutic Exercises, Vestibular Rehabilitation Discharge Physical Therapy Discharge Comments D/C to independent HEP
== END 2024-10-26 10:59 | disposition home or self-care (01) ==
LOC: PHYS 11:15
PROVIDERS: Family Provider Family Medicine; PCP Family Medicine; Referring Provider Family Medicine; Visit Provider Family Medicine
DX: M19.90 Unspecified osteoarthritis, unspecified site (principal); M25.551 Pain in right hip; M25.552 Pain in left hip
CPT/HCPCS: 97110; 97162

== ENCOUNTER → 2024-05-20 12:44 | Outpatient (CLI) | payer OTHER, SELFPAY ==
--- NOTE | 2024-05-20 12:45 | DI.MG.S_ITS ---
BILATERAL DIGITAL SCREENING MAMMOGRAM 3D/2D WITH CAD: 05/20/2024 CLINICAL: Routine screening. Comparison is made to exams dated: 05/14/2023 mammogram, 10/09/2020 mammogram - [facility], and 10/06/2016 mammogram - [facility]. The breasts are almost entirely fatty (category a/<25% glandular tissue). Current study was also evaluated with a Computer Aided Detection (CAD) system. No significant masses, calcifications, or other findings are seen in either breast. There has been no significant interval change. IMPRESSION: NEGATIVE There is no mammographic evidence of malignancy. A 1 year screening mammogram is recommended. Based on the Tyrer Cuzick model (a risk assessment model) the patient's lifetime risk is 4.0% and her 10 year risk is 1.9%. According to the ACR, ACS, and NCCN guidelines, an annual breast MRI exam along with mammogram is recommended if the patient's lifetime risk is 20% or greater. This exam was interpreted at Station ID: [id number]. NOTE: For mammograms, a report in lay terms will be sent to the patient. Approximately 15% of breast malignancies will not be visualized mammographically. In the management of a palpable breast mass, a negative mammogram must not discourage biopsy of a clinically suspicious lesion. Electronically Signed By: Jacki Cartwright M.D., Ph.D. elda/ying:05/23/2024 08:40:40 letter sent: Normal Exam ACR BI-RADS Category 1: Negative [id number]
== END ==
LOC: MAMMO 12:45
PROVIDERS: Family Provider Family Medicine; PCP Family Medicine; Referring Provider Family Medicine; Visit Provider Family Medicine
DX: Z12.31 Encounter for screening mammogram for malignant neoplasm of breast (principal); R92.313 Mammographic fatty tissue density, bilateral breasts
CPT/HCPCS: 77063; 77067

== ENCOUNTER → 2024-06-24 11:33 | Outpatient (CLI) | payer OTHER, SELFPAY ==
--- NOTE | 2024-06-24 11:35 | DI.RAD.S_ITS ---
PROCEDURE: XR FOOT LT MIN 3V INDICATIONS: L FOOT PAIN TECHNIQUE: 3 views of the foot were acquired. COMPARISON: None. FINDINGS: Postoperative changes are noted left 1st metatarsal with 2 fixation screws commonly related to prior osteotomy. Mild degenerative changes at the talonavicular, calcaneocuboid, 1st metatarsophalangeal joints. 3 mm inferior calcaneal enthesophytes spur. No radiographic evidence of fracture, dislocation, or high attenuation soft tissue foreign body. No arch abnormality on the weight-bearing lateral image. IMPRESSION: Mild degenerative changes as discussed above. Dictated by: Tramaine Ventura M.D. on 06/27/2024 at 12:08 Approved by: Tramaine Ventura M.D. on 06/27/2024 at 12:11
== END ==
PROVIDERS: Family Provider Family Medicine; PCP Family Medicine; Referring Provider Podiatrist Foot & Ankle Surgery; Visit Provider Podiatrist Foot & Ankle Surgery
DX: M79.672 Pain in left foot (principal)
CPT/HCPCS: 73630

== ENCOUNTER 2024-06-28 13:00 | Outpatient (RCR) | payer OTHER, SELFPAY ==
--- NOTE | 2024-06-02 15:55 | PT.OIE ---
Current Diagnoses Stiffness of left ankle, not elsewhere classified (06/02/24) Stiffness of left foot, not elsewhere classified (06/02/24) Plantar fascial fibromatosis (06/02/24) Other lack of coordination (06/02/24) Weakness (06/02/24) Past Medical History (Last Updated 12/04/23 @ 16:12 by Ela Murphy DO) Anxiety (~2014) Cervical spine disease Chicken pox (~1964) Chronic back pain Eczema (~1974) Endometrial thickening on ultrasound (~12/04/21) Fibroids Fibromyalgia (~2011) Finger fracture (~2013) History of thyroid cancer HTN (hypertension) Internal hemorrhoids Irritable bowel syndrome Osteoarthritis (~1999) Osteoporosis Restless leg syndrome Thyroid cancer Past Surgical History (Last Updated 12/04/23 @ 16:16 by Ela Murphy DO) Anesthesia History of appendectomy (~2011) History of bunionectomy (~2004) History of section (~2004) History of thyroidectomy (~2015) Pilonidal cyst (~1989) S/P cervical spinal fusion (~2012) S/P subtotal parathyroidectomy Visit Care Team Role Provider Type Ela Murphy DO Family Provider Physician Primary Care Provider Specialty: Medical Address: [address] [place] [address], [address], [place], [address] Email: [email or web address] Mosquera DPM Attending Provider Physician Referring Provider Specialty: Orthopedics Orthopedic Surgery Podiatry General Surgery Address: [address] [place] [address], [address] Email: [email or web address] Physical Therapy Initial Evaluation PT-OP-A Visit Information Start: 06/01/24 15:19 Freq: Status: Active Protocol: Document 06/02/24 12:57 NM (Rec: 06/02/24 13:46 NM [id number]) Out-Patient Physical Therapy Visit Information Visit Information Visit Type Initial Evaluation Visit Start Time 13:00 Visit Stop Time 13:45 Visit Number 1 Evaluation Information Evaluation Date 06/02/24 Precautions Precautions Fibromyalgia, cervical and lumbar fusions, L bunion surgery PT-OP-B Current Condition Start: 06/01/24 15:19 Freq: Status: Active Protocol: Document 06/02/24 12:57 NM (Rec: 06/02/24 13:46 NM [id number]) Current Condition History of Current Condition Onset Date Summer 2023 Current Complaints pain, limited mobility ronald ambulation, poor strength History of Current Condition Pt reports that she has plantar fasciitis in her L foot since the beginning of Summer after she was walking. She had an injection in April , but did not help. She reports that MD also gave her exercises (calf stretch in standing, rolling on ice, massage). She reports that she was put in a boot for a month , 30/03. She sleeps on her L side. She then followed up with the soaker this past week, follow up in 3 weeks. She reports that she recently adopted a dog so she would walk every day. Pt is wanting to lose weight, unable to since walking is limited. She is trying to talk herself into swimming. Pt reports heel pain. She also had a night splint, but this prevented her from sleeping and then started hurting on dorsal surface. States that numbness on dorsal foot only occurs in splints. Pt also has fibromyalgia, reports has to be deep tissue to last longer. Has PMH of plantar fasciitis on her R foot 10 years ago. She states that she was hoping for manipulation/massage. Pt recently got new shoes and superfeet insole (was wearing vionic before), heel cup. She has not been wearing the heel cup. Has compression sleeve as well from Dr. Mosquera. Has been taping (K tape), but reports feels like sleeve. States that also has chronic back problems. Planning on starting up swimming. Hx of 3 level neck fusion, spontaneous lumbar fusion. 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 States that has improved 30% since seeing soaker with all his modalities Patient Questionnaires Foot & Ankle Ability Measure- ADL and Sports FAAM-ADL Score 34/84 FAAM-Sport Score 10/32 Lower Extremity Functional Scale LEFS Score 33/80 OP-PT Pain Assessment Location L foot Pain Location Details heel, arch Intensity 4 Scale Used Numeric (0 - 10) Description Sharp Description- Other worse: 6/10 Frequency Frequent Variations/Patterns reports less bad in am, worse with standing Pain Aggravating Factors ADL's,Activity,Exercise, Standing,Walking Pain Alleviating Factors Cold,Standing,Massage, Splinting PT-OP-E Functional Tests Start: 06/01/24 15:19 Freq: Status: Active Protocol: Document 06/02/24 12:57 NM (Rec: 06/02/24 13:46 NM [id number]) Functional Tests Other Dorsiflexion Test Name of Test measured in standing (modified ) to wall, toes are 4 fingers from wall Score 1 cm Comment on L PT-OP-F Manual Assessment Start: 06/01/24 15:19 Freq: Status: Active Protocol: Document 06/02/24 12:57 NM (Rec: 06/02/24 13:46 NM [id number]) Manual Assessments Soft Tissue Assessment Soft Tissue Mobility Assessment Thickened L Achilles, calf tightness Joint Mobility Assessment Joint Mobility Assessment Decreased L foot mobility, ronald 1st toe, midfoot, and calcaneus. No ankle instability PT-OP-G Mobility & Gait Start: 06/01/24 15:19 Freq: Status: Active Protocol: Document 06/02/24 12:57 NM (Rec: 06/02/24 15:39 NM [id number]) OP Gait Assessment Gait Gait Assistance Required: Independent Distance (Feet) 150 Assistive Devices Assistive Device None Gait Deviations General Gait Pattern Antalgic Factors Limiting Gait Function Factors Limiting Gait Function Decreased Activity Tolerance, Decreased Sensation,Decreased Strength,Pain Comments Gait Comments Less stance time on RLE PT-OP-H Neuro Start: 06/01/24 15:19 Freq: Status: Active Protocol: Document 06/02/24 12:57 NM (Rec: 06/02/24 13:46 NM [id number]) Sensation Evaluation Comments Summary Comments BLE intact to light touch sensation equally except for L dorsal/lateral/plantar foot. Decreased sharp/dull sensation on L dorsal and plantar foot PT-OP-J Posture/Palpation/Skin Start: 06/01/24 15:19 Freq: Status: Active Protocol: Document 06/02/24 12:57 NM (Rec: 06/02/24 15:39 NM [id number]) Posture Evaluation Position Standing Head/C-Spine Posture Forward Head T-Spine Posture Increased Kyphosis Shoulder Posture (L) Rounded,(R) Rounded Arm Posture (L) Internally Rotated,(R) Internally Rotated Pelvis Posture Anteriorly Tilted Weight Distribution Weight Shifted Right Hip Posture (L) Externally Rotated,(R) Externally Rotated Knee Posture (L) Genu Valgus,(R) Genu Valgus Ankle/Foot Posture (L) Calcaneal Eversion,(R) Calcaneal Eversion Foot Arch (L) Medium Arch,(R) Medium Arch Palpation Assessment Location L foot Palpation Findings Soft Tissue Tightness Palpation Details No tenderness along arch, plantar fascia, heel Thickened L achilles Skin Assessment Incisional Assessment Incision Appearance/Comments Incision present along L 1st toe due to previous bunion surgery PT-OP-K Range of Motion Start: 06/01/24 15:19 Freq: Status: Active Protocol: Document 06/02/24 12:57 NM (Rec: 06/02/24 13:46 NM [id number]) Ankle and Foot Goniometric Range of Motion Ankle and Foot Right Dorsiflexion with Knee Flexed 15 Plantarflexion 45 Inversion 30 Eversion 20 Left Dorsiflexion with Knee Flexed 3 Plantarflexion 40 Inversion 10 Eversion 20 PT-OP-L Special Tests Start: 06/01/24 15:19 Freq: Status: Active Protocol: Document 06/02/24 12:57 NM (Rec: 06/02/24 13:46 NM [id number]) Special Tests Foot/Ankle Special Tests Windlass Test Results + PT-OP-M Strength Start: 06/01/24 15:19 Freq: Status: Active Protocol: Document 06/02/24 12:57 NM (Rec: 06/02/24 13:46 NM [id number]) Hip Strength Hip Manual Muscle Testing Right Flexion (L2) 4 Good Extension (S1) 4 Good Abduction 4 Good Adduction 4 Good External Rotation 4 Good Internal Rotation 4 Good Left Flexion (L2) 4- Good- Extension (S1) 4- Good- Abduction 4- Good- Adduction 4- Good- External Rotation 4- Good- Internal Rotation 4- Good- Knee Strength Knee Manual Muscle Testing Right Flexion (S2) 4 Good Extension (L3) 4 Good Left Flexion (S2) 4- Good- Extension (L3) 4- Good- Ankle/Foot Strength Ankle and Foot Manual Muscle Testing Right Dorsiflexion (L4) 5 Normal Plantarflexion (S1) 3 Fair Inversion 5 Normal Eversion (S1) 5 Normal Comments unable to do 1 single leg heel raise in stading; can perform 5 B heel raises; plantarflexion tested in sitting Left Dorsiflexion (L4) 4 Good Plantarflexion (S1) 3 Fair Inversion 4 Good Eversion (S1) 4 Good Comments unable to do 1 single leg heel raise in standing; can perform 5 B heel raises; plantarflexion tested in sitting PT-OP-Q Treatments Start: 06/01/24 15:19 Freq: Status: Active Protocol: Document 06/02/24 12:57 NM (Rec: 06/02/24 13:46 NM [id number]) Therapeutic Exercises Sitting Exercises Hamstring stretch Side bilateral Equipment Used heel elevated on bolster Reps/Minutes 60 ea Standing Exercises calf stretch Standing Exercise Name 1. gastrocnemius, 2. soleus Side bilateral Reps/Minutes 2x60 ea PT-OP-T Assessment and Plan Start: 06/01/24 15:19 Freq: Status: Active Protocol: Document 06/02/24 12:57 NM (Rec: 06/02/24 13:46 NM [id number]) Physical Therapy Assessment Rehab Potential Rehabilitation Potential Fair Evaluation Complexity Number of Personal Factors/Comorbidities 3 or More Number of Body Systems Impaired 4 or More Clinical Presentation at Evaluation Stable Impairments Impairments Activity Tolerance,Balance, Functional Activities, Functional Mobility,Gait, Integument,Pain,Posture,ROM, Sensation,Soft Tissue Mobility ,Strength,Transfers Other Concerns Barriers to Rehabilitation Pt has limited number of authorized insurance visits and has financial constraints if insurance does not pay for visits. Pt is currently trying to lose weight between exercise and ozempic; however, pt is hesistant to perform swimming or other forms of exercise due to her concerns about her body image. PMH: arthritis, back pain, spontaneous lumbar fusion, blood pressure, depression, fibromyalgia, headaches, joint replacement, neck pain, osteopenia, osteoporosis, thyroidectomy, vision problems , myomectomy, pilonidal cysts, bunion surgery (L), 3 level neck fusion, appendectomy Goals Five Impairment ambulation distance limited due to pain Fdc Goal (LTG) If appropriate, pt will report that she is able to ambulate at least 1 mile without increase in L foot pain in order to be able to walk her dog LTG Duration 12 weeks Four Impairment limitations in activity tolerance with standing/ ambulation for work Bilingual Patient Support Caseworker Goal (LTG) Pt will report that she is able to stand for >45 minutes without increase in L foot pain in order to be able to perform ADLs and work related tasks LTG Duration 12 weeks Three Impairment L ankle strength limited Short Term Goal (STG) Pt will be able to perform at least 10 B heel raises without compensation or limitations due to L plantar pain in order to improve strength for gait and standing tolerance STG Duration 6 weeks Bilingual Patient Support Caseworker Goal (LTG) If appropriate, pt will be able to perform at least 1 single leg heel raise without compensation or limitations due to L plantar pain in order to improve strength for gait and standing tolerance LTG Duration 12 weeks Two Impairment L foot AROM limited: L dorsiflexion and inversion limited Short Term Goal (STG) Pt will improve L ankle dorsiflexion to >5 deg AROM and L ankle inversion >20 deg AROM in order to improve L ankle mobility for gait and stance STG Duration 6 weeks Bilingual Patient Support Caseworker Goal (LTG) Pt will improve L ankle dorsiflexion to >10 deg AROM and L ankle inversion >25 deg AROM in order to improve L ankle mobility for gait and stance LTG Duration 12 weeks One Impairment not performing regular exercise or HEP Short Term Goal (STG) Pt will report compliance with HEP at least 3x/wk in order to maximize progression with PT STG Duration 3 weeks Bilingual Patient Support Caseworker Goal (LTG) Pt will report compliance with HEP at least 3x/wk in order to transition to maintenance program to promote better health and activity habits for pt's weight loss journey LTG Duration 12 weeks Assessment Summary Assessment Pt is a 64 y.o. female presenting with L plantar and heel pain consistent with dx. Pt has impairments in ROM, strength, gait, balance, activity tolerance, pain management, and symptom management. Pt has decreased L ankle dorsiflexion and inversion compared to RLE; she also has limitations in overall L foot mobility, secondary to pain and previous bunion surgery. Pt's LLE strength is more limited compared to RLE, especially proximally. However, pt also has decreased plantarflexor strength bilaterally, which likely also factors into her symptoms. Pt currently has limitations in her standing and ambulation tolerance, which limits her ability to participate in exercise and work-related tasks. PT educated pt on exam findings and plan of care. Pt would benefit from skilled PT for flexibility training and global strengthening to improve symptom management and improve activity tolerance. Physical Therapy Plan Frequency and Duration Frequency of Treatment 1-2x/wk Duration of treatment (weeks) 12 Plan of Care Start Date 06/02/24 Plan of Care End Date 08/26/24 Therapeutic Interventions Therapeutic Interventions Balance Training,Gait Training ,Home Exercise Program,Joint Mobilizations,Manual Therapy, Neuromuscular Re-education, Orthotic/Prosthetic Management ,Patient/Caregiver Education, Self-Care/Home Management, Sensory Integration,Soft Tissue Mobilization,Taping, Therapeutic Activities, Therapeutic Exercises Modalities Cold Pack/Ice Massage,Electric Stimulation,Hot Packs Other Therapeutic Interventions No grade IV mobilizations due to osteopenia/osteoporosis Next Visit Focus/Plan Next Note Type Treatment Note Next Visit Plan Review HEP: calf stretch, self mobilization, HS stretch Ankle/foot mobilizations and soft tissue mobilizations foot instrinsics, ankle 4 way, Hip strengthening
--- NOTE | 2024-06-08 15:32 | PT.OTN ---
Current Diagnoses Stiffness of left ankle, not elsewhere classified (06/08/24) Stiffness of left foot, not elsewhere classified (06/08/24) Plantar fascial fibromatosis (06/08/24) Other lack of coordination (06/08/24) Weakness (06/08/24) Physical Therapy Treatment Note PT-OP-A Visit Information Start: 06/01/24 15:19 Freq: Status: Active Protocol: Document 06/08/24 12:59 NM (Rec: 06/08/24 13:47 NM [id number]) Out-Patient Physical Therapy Visit Information Visit Information Visit Type Treatment Note Visit Start Time 13:00 Visit Stop Time 13:45 Visit Number 2 Evaluation Information Evaluation Date 06/02/24 Precautions Precautions Fibromyalgia, cervical and lumbar fusions, L bunion surgery PT-OP-B Current Condition Start: 06/01/24 15:19 Freq: Status: Active Protocol: Document 06/02/24 12:57 NM (Rec: 06/02/24 13:46 NM [id number]) Current Condition History of Current Condition Onset Date Summer 2023 Current Complaints pain, limited mobility ronald ambulation, poor strength History of Current Condition Pt reports that she has plantar fasciitis in her L foot since the beginning of Summer after she was walking. She had an injection in April , but did not help. She reports that MD also gave her exercises (calf stretch in standing, rolling on ice, massage). She reports that she was put in a boot for a month , 30/03. She sleeps on her L side. She then followed up with the tarper this past week, follow up in 3 weeks. She reports that she recently adopted a dog so she would walk every day. Pt is wanting to lose weight, unable to since walking is limited. She is trying to talk herself into swimming. Pt reports heel pain. She also had a night splint, but this prevented her from sleeping and then started hurting on dorsal surface. States that numbness on dorsal foot only occurs in splints. Pt also has fibromyalgia, reports has to be deep tissue to last longer. Has PMH of plantar fasciitis on her R foot 10 years ago. She states that she was hoping for manipulation/massage. Pt recently got new shoes and superfeet insole (was wearing vionic before), heel cup. She has not been wearing the heel cup. Has compression sleeve as well from Dr. Mosquera. Has been taping (K tape), but reports feels like sleeve. States that also has chronic back problems. Planning on starting up swimming. Hx of 3 level neck fusion, spontaneous lumbar fusion. 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 States that she feels like a bruise on her heel, reports 4/10. Reports lots of cramping at night, walks at night to alleviate (states R leg last night). She thinks it 's fibromyalgia. She is still doing what the MD suggested. Has not tried walking more yet . She works [employer]; no change in standing tolerance but reports slightly better. [place]. PT-OP-E Functional Tests Start: 06/01/24 15:19 Freq: Status: Active Protocol: Document 06/02/24 12:57 NM (Rec: 06/02/24 13:46 NM [id number]) Functional Tests Other Dorsiflexion Test Name of Test measured in standing (modified ) to wall, toes are 4 fingers from wall Score 1 cm Comment on L PT-OP-F Manual Assessment Start: 06/01/24 15:19 Freq: Status: Active Protocol: Document 06/02/24 12:57 NM (Rec: 06/02/24 13:46 NM [id number]) Manual Assessments Soft Tissue Assessment Soft Tissue Mobility Assessment Thickened L Achilles, calf tightness Joint Mobility Assessment Joint Mobility Assessment Decreased L foot mobility, ronald 1st toe, midfoot, and calcaneus. No ankle instability PT-OP-G Mobility & Gait Start: 06/01/24 15:19 Freq: Status: Active Protocol: Document 06/02/24 12:57 NM (Rec: 06/02/24 15:39 NM [id number]) OP Gait Assessment Gait Gait Assistance Required: Independent Distance (Feet) 150 Assistive Devices Assistive Device None Gait Deviations General Gait Pattern Antalgic Factors Limiting Gait Function Factors Limiting Gait Function Decreased Activity Tolerance, Decreased Sensation,Decreased Strength,Pain Comments Gait Comments Less stance time on RLE PT-OP-H Neuro Start: 06/01/24 15:19 Freq: Status: Active Protocol: Document 06/02/24 12:57 NM (Rec: 06/02/24 13:46 NM [id number]) Sensation Evaluation Comments Summary Comments BLE intact to light touch sensation equally except for L dorsal/lateral/plantar foot. Decreased sharp/dull sensation on L dorsal and plantar foot PT-OP-J Posture/Palpation/Skin Start: 06/01/24 15:19 Freq: Status: Active Protocol: Document 06/02/24 12:57 NM (Rec: 06/02/24 15:39 NM [id number]) Posture Evaluation Position Standing Head/C-Spine Posture Forward Head T-Spine Posture Increased Kyphosis Shoulder Posture (L) Rounded,(R) Rounded Arm Posture (L) Internally Rotated,(R) Internally Rotated Pelvis Posture Anteriorly Tilted Weight Distribution Weight Shifted Right Hip Posture (L) Externally Rotated,(R) Externally Rotated Knee Posture (L) Genu Valgus,(R) Genu Valgus Ankle/Foot Posture (L) Calcaneal Eversion,(R) Calcaneal Eversion Foot Arch (L) Medium Arch,(R) Medium Arch Palpation Assessment Location L foot Palpation Findings Soft Tissue Tightness Palpation Details No tenderness along arch, plantar fascia, heel Thickened L achilles Skin Assessment Incisional Assessment Incision Appearance/Comments Incision present along L 1st toe due to previous bunion surgery PT-OP-K Range of Motion Start: 06/01/24 15:19 Freq: Status: Active Protocol: Document 06/08/24 12:59 NM (Rec: 06/08/24 13:47 NM [id number]) Ankle and Foot Goniometric Range of Motion Ankle and Foot Right Dorsiflexion with Knee Flexed 15 Plantarflexion 45 Inversion 30 Eversion 20 Left Dorsiflexion with Knee Flexed 3 Plantarflexion 40 Inversion 10 Eversion 20 Comments 06/08/24: 4 deg of DF, PT-OP-L Special Tests Start: 06/01/24 15:19 Freq: Status: Active Protocol: Document 06/02/24 12:57 NM (Rec: 06/02/24 13:46 NM [id number]) Special Tests Foot/Ankle Special Tests Windlass Test Results + PT-OP-M Strength Start: 06/01/24 15:19 Freq: Status: Active Protocol: Document 06/08/24 12:59 NM (Rec: 06/08/24 13:47 NM [id number]) Hip Strength Hip Manual Muscle Testing Right Flexion (L2) 4 Good Extension (S1) 4 Good Abduction 4 Good Adduction 4 Good External Rotation 4 Good Internal Rotation 4 Good Left Flexion (L2) 4- Good- Extension (S1) 4- Good- Abduction 4- Good- Adduction 4- Good- External Rotation 4- Good- Internal Rotation 4- Good- Ankle/Foot Strength Ankle and Foot Manual Muscle Testing Right Dorsiflexion (L4) 5 Normal Plantarflexion (S1) 3 Fair Inversion 5 Normal Eversion (S1) 5 Normal Comments unable to do 1 single leg heel raise in stading; can perform 5 B heel raises; plantarflexion tested in sitting Left Dorsiflexion (L4) 4 Good Plantarflexion (S1) 3 Fair Inversion 4 Good Eversion (S1) 4 Good Comments unable to do 1 single leg heel raise in standing; can perform 5 B heel raises; plantarflexion tested in sitting PT-OP-Q Treatments Start: 06/01/24 15:19 Freq: Status: Active Protocol: Document 06/08/24 12:59 NM (Rec: 06/08/24 13:47 NM [id number]) Therapeutic Exercises Sitting Exercises ankle dorsiflexion Side bilateral Resistance level 3 band Reps/Minutes 20 w/ 3 hold foot instrinsics Sitting Exercise Name 1. toe abd/add, 2. arch raise, 3. big toe ext, 4. big toe flex Side left Equipment Used small racquetball Reps/Minutes 1. 15, 2. 15, 3. 15, 4, 15 w/ 1 Comments challenging but pain free; added to HEP Standing Exercises heel raise Side bilateral Equipment Used hand support on rail great toe ext mobilization Standing Exercise Name HEP Side left Equipment Used towel roll Reps/Minutes 60 seconds Comments feels good calf stretch Standing Exercise Name 1. soleus in staggered, 2. stairs for gastrocnemius Side left Reps/Minutes 2x60 ea Other Exercises self soft tissue mobilization Other Exercise Name plantarfascia Side left Equipment Used racquetball Reps/Minutes 1 minute Manual Therapy Treatment Consent Patient gave verbal consent for manual Yes treatment Soft Tissue Mobilization L ankle/foot Body Location calf, plantar fascia Mobilization Type Instrument Assisted,Rolling, Other Intensity/Depth Moderate Body Position supine/prone Comments Fanning, rolling using Nanovi tools on calf and plantar fascia. Adhesion noted in midfoot. Monitored for pain. Joint Mobilizations L ankle/foot Joint talocrural, 1st toe Direction AP, dorsal/volar Grade III Body Position Hooklying Reps/Duration supine Comments To improve ankle and foot mobility. Monitored for pain. Poor 1st toe ext/flex, abd/add PT-OP-T Assessment and Plan Start: 06/01/24 15:19 Freq: Status: Active Protocol: Document 06/08/24 12:59 NM (Rec: 06/08/24 13:47 NM [id number]) Physical Therapy Assessment Goals Five Impairment ambulation distance limited due to pain Wastewater Operator Goal (LTG) If appropriate, pt will report that she is able to ambulate at least 1 mile without increase in L foot pain in order to be able to walk her dog LTG Duration 12 weeks Four Impairment limitations in activity tolerance with standing/ ambulation for work Residential Goal (LTG) Pt will report that she is able to stand for >45 minutes without increase in L foot pain in order to be able to perform ADLs and work related tasks LTG Duration 12 weeks Three Impairment L ankle strength limited Short Term Goal (STG) Pt will be able to perform at least 10 B heel raises without compensation or limitations due to L plantar pain in order to improve strength for gait and standing tolerance STG Duration 6 weeks Residential Goal (LTG) If appropriate, pt will be able to perform at least 1 single leg heel raise without compensation or limitations due to L plantar pain in order to improve strength for gait and standing tolerance LTG Duration 12 weeks Two Impairment L foot AROM limited: L dorsiflexion and inversion limited Short Term Goal (STG) Pt will improve L ankle dorsiflexion to >5 deg AROM and L ankle inversion >20 deg AROM in order to improve L ankle mobility for gait and stance STG Duration 6 weeks Residential Goal (LTG) Pt will improve L ankle dorsiflexion to >10 deg AROM and L ankle inversion >25 deg AROM in order to improve L ankle mobility for gait and stance LTG Duration 12 weeks One Impairment not performing regular exercise or HEP Short Term Goal (STG) Pt will report compliance with HEP at least 3x/wk in order to maximize progression with PT STG Duration 3 weeks Wastewater Operator Goal (LTG) Pt will report compliance with HEP at least 3x/wk in order to transition to maintenance program to promote better health and activity habits for pt's weight loss journey LTG Duration 12 weeks Assessment Summary Assessment Pt tolerated session well. Emphasis on improving plantar fascia length, heel cord length, and global L ankle/ foot intrinsic and extrinsic strength. Pt responds well to calf stretching; modified gastroc stretch to stairs instead if staggered stance, allowing pt to feel good stretch. Initiated foot instrinsics to address activation and improved support at foot. Pt challenged initially but improved with reps; reports good feedback to tightness along plantar fascia. Demos improvement in LEFS from 33/80 to 40/80; no change in pain levels or standing time since evaluation . Pt would benefit from skilled PT for symptom management in addition to improving global ankle strength and hip strength. Physical Therapy Plan Frequency and Duration Frequency of Treatment 1-2x/wk Duration of treatment (weeks) 12 Plan of Care Start Date 06/02/24 Plan of Care End Date 08/26/24 Therapeutic Interventions Therapeutic Interventions Balance Training,Gait Training ,Home Exercise Program,Joint Mobilizations,Manual Therapy, Neuromuscular Re-education, Orthotic/Prosthetic Management ,Patient/Caregiver Education, Self-Care/Home Management, Sensory Integration,Soft Tissue Mobilization,Taping, Therapeutic Activities, Therapeutic Exercises Modalities Cold Pack/Ice Massage,Electric Stimulation,Hot Packs Other Therapeutic Interventions No grade IV mobilizations due to osteopenia/osteoporosis Next Visit Focus/Plan Next Note Type Treatment Note Next Visit Plan Review HEP as needed. Assess tolerance to stair stretch. Add sidelying hip abduction vs side step, STS with band. Heel raises, ankle 4 way. hip and ankle strengthening Ankle/foot mobilizations and soft tissue mobilizations ( moderate-deep)
--- NOTE | 2024-06-16 11:25 | PT.OTN ---
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 Visit Start Time 10:47 Visit Stop Time 11:25 Visit Number 3 Number of NETWORK CONTROL OPERATOR Visits 1 Evaluation Information Evaluation Date 06/02/24 Precautions Precautions Fibromyalgia, cervical and lumbar fusions, L bunion surgery PT-OP-B Current Condition Start: 06/01/24 15:19 Freq: Status: Active Protocol: Document 06/02/24 12:57 NM (Rec: 06/02/24 13:46 NM [id number]) Current Condition History of Current Condition Onset Date Summer 2023 Current Complaints pain, limited mobility ronald ambulation, poor strength History of Current Condition Pt reports that she has plantar fasciitis in her L foot since the beginning of Summer after she was walking. She had an injection in April , but did not help. She reports that MD also gave her exercises (calf stretch in standing, rolling on ice, massage). She reports that she was put in a boot for a month , 30/03. She sleeps on her L side. She then followed up with the [facility] behavioral health this past week, follow up in 3 weeks. She reports that she recently adopted a dog so she would walk every day. Pt is wanting to lose weight, unable to since walking is limited. She is trying to talk herself into swimming. Pt reports heel pain. She also had a night splint, but this prevented her from sleeping and then started hurting on dorsal surface. States that numbness on dorsal foot only occurs in splints. Pt also has fibromyalgia, reports has to be deep tissue to last longer. Has PMH of plantar fasciitis on her R foot 10 years ago. She states that she was hoping for manipulation/massage. Pt recently got new shoes and superfeet insole (was wearing vionic before), heel cup. She has not been wearing the heel cup. Has compression sleeve as well from Dr. Mosquera. Has been taping (K tape), but reports feels like sleeve. States that also has chronic back problems. Planning on starting up swimming. Hx of 3 level neck fusion, spontaneous lumbar fusion. 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 Had foot surgery years ago and hasn't had this numbness feeling so thinks these couple exercises are causing the numbness feeling. She wears superfeet in her shoes for added support and helping not as much plantar fascia pain. PT-OP-E Functional Tests Start: 06/01/24 15:19 Freq: Status: Active Protocol: Document 06/02/24 12:57 NM (Rec: 06/02/24 13:46 NM [id number]) Functional Tests Other Dorsiflexion Test Name of Test measured in standing (modified ) to wall, toes are 4 fingers from wall Score 1 cm Comment on L PT-OP-F Manual Assessment Start: 06/01/24 15:19 Freq: Status: Active Protocol: Document 06/02/24 12:57 NM (Rec: 06/02/24 13:46 NM [id number]) Manual Assessments Soft Tissue Assessment Soft Tissue Mobility Assessment Thickened L Achilles, calf tightness Joint Mobility Assessment Joint Mobility Assessment Decreased L foot mobility, ronald 1st toe, midfoot, and calcaneus. No ankle instability PT-OP-G Mobility & Gait Start: 06/01/24 15:19 Freq: Status: Active Protocol: Document 06/02/24 12:57 NM (Rec: 06/02/24 15:39 NM [id number]) OP Gait Assessment Gait Gait Assistance Required: Independent Distance (Feet) 150 Assistive Devices Assistive Device None Gait Deviations General Gait Pattern Antalgic Factors Limiting Gait Function Factors Limiting Gait Function Decreased Activity Tolerance, Decreased Sensation,Decreased Strength,Pain Comments Gait Comments Less stance time on RLE PT-OP-H Neuro Start: 06/01/24 15:19 Freq: Status: Active Protocol: Document 06/02/24 12:57 NM (Rec: 06/02/24 13:46 NM [id number]) Sensation Evaluation Comments Summary Comments BLE intact to light touch sensation equally except for L dorsal/lateral/plantar foot. Decreased sharp/dull sensation on L dorsal and plantar foot PT-OP-J Posture/Palpation/Skin Start: 06/01/24 15:19 Freq: Status: Active Protocol: Document 06/02/24 12:57 NM (Rec: 06/02/24 15:39 NM [id number]) Posture Evaluation Position Standing Head/C-Spine Posture Forward Head T-Spine Posture Increased Kyphosis Shoulder Posture (L) Rounded,(R) Rounded Arm Posture (L) Internally Rotated,(R) Internally Rotated Pelvis Posture Anteriorly Tilted Weight Distribution Weight Shifted Right Hip Posture (L) Externally Rotated,(R) Externally Rotated Knee Posture (L) Genu Valgus,(R) Genu Valgus Ankle/Foot Posture (L) Calcaneal Eversion,(R) Calcaneal Eversion Foot Arch (L) Medium Arch,(R) Medium Arch Palpation Assessment Location L foot Palpation Findings Soft Tissue Tightness Palpation Details No tenderness along arch, plantar fascia, heel Thickened L achilles Skin Assessment Incisional Assessment Incision Appearance/Comments Incision present along L 1st toe due to previous bunion surgery PT-OP-K Range of Motion Start: 06/01/24 15:19 Freq: Status: Active Protocol: Document 06/08/24 12:59 NM (Rec: 06/08/24 13:47 NM [id number]) Ankle and Foot Goniometric Range of Motion Ankle and Foot Right Dorsiflexion with Knee Flexed 15 Plantarflexion 45 Inversion 30 Eversion 20 Left Dorsiflexion with Knee Flexed 3 Plantarflexion 40 Inversion 10 Eversion 20 Comments 06/08/24: 4 deg of DF, PT-OP-L Special Tests Start: 06/01/24 15:19 Freq: Status: Active Protocol: Document 06/02/24 12:57 NM (Rec: 06/02/24 13:46 NM [id number]) Special Tests Foot/Ankle Special Tests Windlass Test Results + PT-OP-M Strength Start: 06/01/24 15:19 Freq: Status: Active Protocol: Document 06/08/24 12:59 NM (Rec: 06/08/24 13:47 NM [id number]) Hip Strength Hip Manual Muscle Testing Right Flexion (L2) 4 Good Extension (S1) 4 Good Abduction 4 Good Adduction 4 Good External Rotation 4 Good Internal Rotation 4 Good Left Flexion (L2) 4- Good- Extension (S1) 4- Good- Abduction 4- Good- Adduction 4- Good- External Rotation 4- Good- Internal Rotation 4- Good- Ankle/Foot Strength Ankle and Foot Manual Muscle Testing Right Dorsiflexion (L4) 5 Normal Plantarflexion (S1) 3 Fair Inversion 5 Normal Eversion (S1) 5 Normal Comments unable to do 1 single leg heel raise in stading; can perform 5 B heel raises; plantarflexion tested in sitting Left Dorsiflexion (L4) 4 Good Plantarflexion (S1) 3 Fair Inversion 4 Good Eversion (S1) 4 Good Comments unable to do 1 single leg heel raise in standing; can perform 5 B heel raises; plantarflexion tested in sitting PT-OP-Q Treatments Start: 06/01/24 15:19 Freq: Status: Active Protocol: Document 06/16/24 10:47 SP (Rec: 06/16/24 11:36 SP [id number]) Therapeutic Exercises Sitting Exercises toe extension Sitting Exercise Name trialed Reps/Minutes 8 reps then feel nerve sensation dorsal forefoot Comments discussed performance up to 10 reps no nerve pain. ankle dorsiflexion Sitting Exercise Name DF, EV, PF/eccentric DF Side bilateral Resistance level 3>2 band voer forefoot Reps/Minutes x10 each Comments cued slow painfree and no nerve pain free motion & reps- stopped at 10 foot instrinsics Sitting Exercise Name Modified: toe flexion over racquetball Side left Equipment Used small racquetball Reps/Minutes x 10 Comments reports painfree Hamstring stretch Side bilateral Equipment Used LE straight out front, heel on floor, hip hinge Reps/Minutes 60 ea Comments good stretch reported Standing Exercises heel raise Standing Exercise Name 1. eccentric off step single more tolerant 2. Jon on floor at counter Side bilateral Equipment Used hand support on rail Reps/Minutes [id number] Comments good tolerance, pfree great toe ext mobilization Standing Exercise Name NETWORK CONTROL OPERATOR and Pt didn't know how to perform- Hold til sees PT calf stretch Standing Exercise Name 1. soleus in staggered, 2. stairs for gastrocnemius Side left Equipment Used rail support Reps/Minutes 2x60 ea Comments good stretch response Other Exercises self soft tissue mobilization Other Exercise Name plantarfascia- seated Side left Equipment Used racquetball Reps/Minutes 1 minute Comments good response to rolling pressure gentle beneficial massage Manual Therapy Treatment Soft Tissue Mobilization L ankle/foot Body Location calf, plantar fascia, peroneals Mobilization Type Instrument Assisted,Rolling, Other Intensity/Depth Moderate Body Position Supine Comments Fanning glides, over calf, peroneals. Monitored and adjusted pressure for pain. Joint Mobilizations L ankle/foot Joint talocrural, 1st toe Direction AP Grade II Body Position Hooklying Reps/Duration supine Comments To improve ankle and foot mobility. Monitored for pain. PT-OP-T Assessment and Plan Start: 06/01/24 15:19 Freq: Status: Active Protocol: Document 06/16/24 10:47 SP (Rec: 06/16/24 11:36 SP [id number]) Physical Therapy Assessment Goals Five Impairment ambulation distance limited due to pain [facility] Goal (LTG) If appropriate, pt will report that she is able to ambulate at least 1 mile without increase in L foot pain in order to be able to walk her dog LTG Duration 12 weeks Four Impairment limitations in activity tolerance with standing/ ambulation for work [facility] Goal (LTG) Pt will report that she is able to stand for >45 minutes without increase in L foot pain in order to be able to perform ADLs and work related tasks LTG Duration 12 weeks Three Impairment L ankle strength limited Short Term Goal (STG) Pt will be able to perform at least 10 B heel raises without compensation or limitations due to L plantar pain in order to improve strength for gait and standing tolerance STG Duration 6 weeks [facility] Goal (LTG) If appropriate, pt will be able to perform at least 1 single leg heel raise without compensation or limitations due to L plantar pain in order to improve strength for gait and standing tolerance LTG Duration 12 weeks Two Impairment L foot AROM limited: L dorsiflexion and inversion limited Short Term Goal (STG) Pt will improve L ankle dorsiflexion to >5 deg AROM and L ankle inversion >20 deg AROM in order to improve L ankle mobility for gait and stance STG Duration 6 weeks Audiometric Technician Goal (LTG) Pt will improve L ankle dorsiflexion to >10 deg AROM and L ankle inversion >25 deg AROM in order to improve L ankle mobility for gait and stance LTG Duration 12 weeks One Impairment not performing regular exercise or HEP Short Term Goal (STG) Pt will report compliance with HEP at least 3x/wk in order to maximize progression with PT STG Duration 3 weeks Audiometric Technician Goal (LTG) Pt will report compliance with HEP at least 3x/wk in order to transition to maintenance program to promote better health and activity habits for pt's weight loss journey LTG Duration 12 weeks Assessment Summary Assessment Pt improved less to no dorsal R foot numbness nerve feeling with modification of foot/ ankle HEP. Modified reduction to 8 reps toe extension and change arch lift to performing toe and forefoot flexion over racquetball for intrinic strengthening with no adverse nerve sensation dorsal R foot today. Instructed ankle resisted ex DF reduced band strength to Level 2 and limited reps to 10, also added PF/Eccentric DF and IV and EV for support foot strengthening with no adverse affects. PRovided HO tosupport set up and proper form. Good feedback response to calf static and dynamic stretching. Education and performance of plantar fascia rolling gentle pressure with good feedback feels better. Pt able to perform toe and forefoot over ball vs arch lift more beneficial to continue home for strengthening pain reduction gait. reports little sore Physical Therapy Plan Frequency and Duration Frequency of Treatment 1-2x/wk Duration of treatment (weeks) 12 Plan of Care Start Date 06/02/24 Plan of Care End Date 08/26/24 Therapeutic Interventions Therapeutic Interventions Balance Training,Gait Training ,Home Exercise Program,Joint Mobilizations,Manual Therapy, Neuromuscular Re-education, Orthotic/Prosthetic Management ,Patient/Caregiver Education, Self-Care/Home Management, Sensory Integration,Soft Tissue Mobilization,Taping, Therapeutic Activities, Therapeutic Exercises Modalities Cold Pack/Ice Massage,Electric Stimulation,Hot Packs Other Therapeutic Interventions No grade IV mobilizations due to osteopenia/osteoporosis Next Visit Focus/Plan Next Note Type Treatment Note Next Visit Plan Review HEP as needed. Assess tolerance to modified toe flexion/forefoot flexion over ball and limite toe extension and DF reps. Next: Add sidelying hip abduction vs side step, STS with band. Heel raises, ankle 4 way. hip and ankle strengthening Ankle/foot mobilizations and soft tissue mobilizations ( moderate-deep)
--- NOTE | 2024-06-21 15:38 | PT.OTN ---
Current Diagnoses Stiffness of left ankle, not elsewhere classified (06/21/24) Stiffness of left foot, not elsewhere classified (06/21/24) Plantar fascial fibromatosis (06/21/24) Other lack of coordination (06/21/24) Weakness (06/21/24) Physical Therapy Treatment Note PT-OP-A Visit Information Start: 06/01/24 15:19 Freq: Status: Active Protocol: Document 06/21/24 13:46 NM (Rec: 06/21/24 14:31 NM [id number]) Out-Patient Physical Therapy Visit Information Visit Information Visit Type Treatment Note Visit Note 2/6 visits approved by Michelle . Visit Start Time 13:47 Visit Stop Time 14:27 Visit Number 4 Evaluation Information Evaluation Date 06/02/24 Precautions Precautions Fibromyalgia, cervical and lumbar fusions, L bunion surgery PT-OP-B Current Condition Start: 06/01/24 15:19 Freq: Status: Active Protocol: Document 06/02/24 12:57 NM (Rec: 06/02/24 13:46 NM [id number]) Current Condition History of Current Condition Onset Date Summer 2023 Current Complaints pain, limited mobility ronald ambulation, poor strength History of Current Condition Pt reports that she has plantar fasciitis in her L foot since the beginning of Summer after she was walking. She had an injection in April , but did not help. She reports that MD also gave her exercises (calf stretch in standing, rolling on ice, massage). She reports that she was put in a boot for a month , 30/03. She sleeps on her L side. She then followed up with the strategy consultant this past week, follow up in 3 weeks. She reports that she recently adopted a dog so she would walk every day. Pt is wanting to lose weight, unable to since walking is limited. She is trying to talk herself into swimming. Pt reports heel pain. She also had a night splint, but this prevented her from sleeping and then started hurting on dorsal surface. States that numbness on dorsal foot only occurs in splints. Pt also has fibromyalgia, reports has to be deep tissue to last longer. Has PMH of plantar fasciitis on her R foot 10 years ago. She states that she was hoping for manipulation/massage. Pt recently got new shoes and superfeet insole (was wearing vionic before), heel cup. She has not been wearing the heel cup. Has compression sleeve as well from Dr. Mosquera. Has been taping (K tape), but reports feels like sleeve. States that also has chronic back problems. Planning on starting up swimming. Hx of 3 level neck fusion, spontaneous lumbar fusion. 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 Reports that her plantar fascia is feeling better, reports that still feels like a bruise when walking (used to be a bad bruise and a sharp rock), but less painful. She sees on . She reports that she still has numbness across the top of her foot when she touches it. She wants to review HEP. She reports that she doesn't have to stand at work. She reports that has been walking a few times this week, wore compression sleeve; states that she had no increase in baseline pain, states ok PT-OP-E Functional Tests Start: 06/01/24 15:19 Freq: Status: Active Protocol: Document 06/02/24 12:57 NM (Rec: 06/02/24 13:46 NM [id number]) Functional Tests Other Dorsiflexion Test Name of Test measured in standing (modified ) to wall, toes are 4 fingers from wall Score 1 cm Comment on L PT-OP-F Manual Assessment Start: 06/01/24 15:19 Freq: Status: Active Protocol: Document 06/02/24 12:57 NM (Rec: 06/02/24 13:46 NM [id number]) Manual Assessments Soft Tissue Assessment Soft Tissue Mobility Assessment Thickened L Achilles, calf tightness Joint Mobility Assessment Joint Mobility Assessment Decreased L foot mobility, ronald 1st toe, midfoot, and calcaneus. No ankle instability PT-OP-G Mobility & Gait Start: 06/01/24 15:19 Freq: Status: Active Protocol: Document 06/02/24 12:57 NM (Rec: 06/02/24 15:39 NM [id number]) OP Gait Assessment Gait Gait Assistance Required: Independent Distance (Feet) 150 Assistive Devices Assistive Device None Gait Deviations General Gait Pattern Antalgic Factors Limiting Gait Function Factors Limiting Gait Function Decreased Activity Tolerance, Decreased Sensation,Decreased Strength,Pain Comments Gait Comments Less stance time on RLE PT-OP-H Neuro Start: 06/01/24 15:19 Freq: Status: Active Protocol: Document 06/02/24 12:57 NM (Rec: 06/02/24 13:46 NM [id number]) Sensation Evaluation Comments Summary Comments BLE intact to light touch sensation equally except for L dorsal/lateral/plantar foot. Decreased sharp/dull sensation on L dorsal and plantar foot PT-OP-J Posture/Palpation/Skin Start: 06/01/24 15:19 Freq: Status: Active Protocol: Document 06/02/24 12:57 NM (Rec: 06/02/24 15:39 NM [id number]) Posture Evaluation Position Standing Head/C-Spine Posture Forward Head T-Spine Posture Increased Kyphosis Shoulder Posture (L) Rounded,(R) Rounded Arm Posture (L) Internally Rotated,(R) Internally Rotated Pelvis Posture Anteriorly Tilted Weight Distribution Weight Shifted Right Hip Posture (L) Externally Rotated,(R) Externally Rotated Knee Posture (L) Genu Valgus,(R) Genu Valgus Ankle/Foot Posture (L) Calcaneal Eversion,(R) Calcaneal Eversion Foot Arch (L) Medium Arch,(R) Medium Arch Palpation Assessment Location L foot Palpation Findings Soft Tissue Tightness Palpation Details No tenderness along arch, plantar fascia, heel Thickened L achilles Skin Assessment Incisional Assessment Incision Appearance/Comments Incision present along L 1st toe due to previous bunion surgery PT-OP-K Range of Motion Start: 06/01/24 15:19 Freq: Status: Active Protocol: Document 06/08/24 12:59 NM (Rec: 06/08/24 13:47 NM [id number]) Ankle and Foot Goniometric Range of Motion Ankle and Foot Right Dorsiflexion with Knee Flexed 15 Plantarflexion 45 Inversion 30 Eversion 20 Left Dorsiflexion with Knee Flexed 3 Plantarflexion 40 Inversion 10 Eversion 20 Comments 06/08/24: 4 deg of DF, PT-OP-L Special Tests Start: 06/01/24 15:19 Freq: Status: Active Protocol: Document 06/02/24 12:57 NM (Rec: 06/02/24 13:46 NM [id number]) Special Tests Foot/Ankle Special Tests Windlass Test Results + PT-OP-M Strength Start: 06/01/24 15:19 Freq: Status: Active Protocol: Document 06/08/24 12:59 NM (Rec: 06/08/24 13:47 NM [id number]) Hip Strength Hip Manual Muscle Testing Right Flexion (L2) 4 Good Extension (S1) 4 Good Abduction 4 Good Adduction 4 Good External Rotation 4 Good Internal Rotation 4 Good Left Flexion (L2) 4- Good- Extension (S1) 4- Good- Abduction 4- Good- Adduction 4- Good- External Rotation 4- Good- Internal Rotation 4- Good- Ankle/Foot Strength Ankle and Foot Manual Muscle Testing Right Dorsiflexion (L4) 5 Normal Plantarflexion (S1) 3 Fair Inversion 5 Normal Eversion (S1) 5 Normal Comments unable to do 1 single leg heel raise in stading; can perform 5 B heel raises; plantarflexion tested in sitting Left Dorsiflexion (L4) 4 Good Plantarflexion (S1) 3 Fair Inversion 4 Good Eversion (S1) 4 Good Comments unable to do 1 single leg heel raise in standing; can perform 5 B heel raises; plantarflexion tested in sitting PT-OP-Q Treatments Start: 06/01/24 15:19 Freq: Status: Active Protocol: Document 06/21/24 13:46 NM (Rec: 06/21/24 14:31 NM [id number]) Therapeutic Exercises Sitting Exercises sit to stand Sitting Exercise Name buttock tap Side bilateral Resistance level 3 band at thighs Reps/Minutes 10 Comments cued more hip hinge; pain free at foot ankle dorsiflexion Sitting Exercise Name DF (crossed over leg in ER), EV, inv (same as DF) (declines HO) Side bilateral Resistance level 2 Reps/Minutes x10 each Comments cued slow painfree and no nerve pain free motion & reps- stopped at 10 foot instrinsics Sitting Exercise Name marble fruit picker: 1. inversion, 2. eversion; 3. towel scrunch (HEP- denies HO Side left Reps/Minutes 12 marbles ea Comments pain free; no neural feeling if squeezes less hard Standing Exercises step up Standing Exercise Name 4 step up Side bilateral Reps/Minutes 15 ea Comments cued level pelvis, control; no hand support heel raise Standing Exercise Name 1. eccentric off 2nd step (B), 2. gastroc (floor), 3. soleus (floor) Side bilateral Equipment Used hand support on rail Reps/Minutes 1. 10 ea, 2. 2x10 ea Comments pain free Manual Therapy Treatment Consent Patient gave verbal consent for manual Yes treatment Soft Tissue Mobilization L ankle/foot Body Location calf, plantar fascia Mobilization Type Rolling,Other Intensity/Depth Moderate Body Position Supine Comments Fanning glides, over calf, peroneals. Monitored and adjusted pressure for pain. Joint Mobilizations L ankle/foot Joint talocrural Direction AP Grade II Body Position Hooklying Reps/Duration supine Comments To improve ankle and foot mobility. Monitored for pain. PT-OP-T Assessment and Plan Start: 06/01/24 15:19 Freq: Status: Active Protocol: Document 06/21/24 13:46 NM (Rec: 06/21/24 14:31 NM [id number]) Physical Therapy Assessment Goals Five Impairment ambulation distance limited due to pain Custodial Goal (LTG) If appropriate, pt will report that she is able to ambulate at least 1 mile without increase in L foot pain in order to be able to walk her dog LTG Duration 12 weeks Four Impairment limitations in activity tolerance with standing/ ambulation for work Custodial Goal (LTG) Pt will report that she is able to stand for >45 minutes without increase in L foot pain in order to be able to perform ADLs and work related tasks LTG Duration 12 weeks Three Impairment L ankle strength limited Short Term Goal (STG) Pt will be able to perform at least 10 B heel raises without compensation or limitations due to L plantar pain in order to improve strength for gait and standing tolerance STG Duration 6 weeks Refrigeration Engine Operator Goal (LTG) If appropriate, pt will be able to perform at least 1 single leg heel raise without compensation or limitations due to L plantar pain in order to improve strength for gait and standing tolerance LTG Duration 12 weeks Two Impairment L foot AROM limited: L dorsiflexion and inversion limited Short Term Goal (STG) Pt will improve L ankle dorsiflexion to >5 deg AROM and L ankle inversion >20 deg AROM in order to improve L ankle mobility for gait and stance STG Duration 6 weeks Refrigeration Engine Operator Goal (LTG) Pt will improve L ankle dorsiflexion to >10 deg AROM and L ankle inversion >25 deg AROM in order to improve L ankle mobility for gait and stance LTG Duration 12 weeks One Impairment not performing regular exercise or HEP Short Term Goal (STG) Pt will report compliance with HEP at least 3x/wk in order to maximize progression with PT STG Duration 3 weeks Refrigeration Engine Operator Goal (LTG) Pt will report compliance with HEP at least 3x/wk in order to transition to maintenance program to promote better health and activity habits for pt's weight loss journey LTG Duration 12 weeks Assessment Summary Assessment Pt tolerated session well, emphasis on intrinsic strengthening. Reviewed and adjusted HEP Trialed marble fruit picker and towel scrunches; pt does not have neural/ numbness sensation unless she maximally squeezes her foot/ toes, so educated to perform submaximally. Initiated soleus raises today; cued for form, but good tolerance for activity. Fatigues quickly with all strengthening exercises, especially at calf. Trialed 4 step up for glute/ quad strengthening. Cueing for lumbopelvic control and control with eccentric lowering. Pt has 5 deg of L ankle dorsiflexion at end of session. Pt would benefit from skilled PT for progressive L foot/ankle and BLE strengthening to improve symptom management for increased standing and ADL tolerance. Physical Therapy Plan Frequency and Duration Frequency of Treatment 1-2x/wk Duration of treatment (weeks) 12 Plan of Care Start Date 06/02/24 Plan of Care End Date 08/26/24 Therapeutic Interventions Therapeutic Interventions Balance Training,Gait Training ,Home Exercise Program,Joint Mobilizations,Manual Therapy, Neuromuscular Re-education, Orthotic/Prosthetic Management ,Patient/Caregiver Education, Self-Care/Home Management, Sensory Integration,Soft Tissue Mobilization,Taping, Therapeutic Activities, Therapeutic Exercises Modalities Cold Pack/Ice Massage,Electric Stimulation,Hot Packs Other Therapeutic Interventions No grade IV mobilizations due to osteopenia/osteoporosis Next Visit Focus/Plan Next Note Type Treatment Note Next Visit Plan Review HEP as needed. Assess chrissy for STS with band and step up. Add side step, step up to HEP. Cont w/ heel raises and banded ankle inv/ev, trial ankle DF in standing. hip and ankle strengthening and proprioception Ankle/foot mobilizations and soft tissue mobilizations ( moderate-deep)- avoid 1st metatarsal/medial tarsals d/t surgical hx
--- NOTE | 2024-06-24 11:27 | PT.OTN ---
Current Diagnoses Stiffness of left ankle, not elsewhere classified (06/24/24) Stiffness of left foot, not elsewhere classified (06/24/24) Plantar fascial fibromatosis (06/24/24) Other lack of coordination (06/24/24) Weakness (06/24/24) Physical Therapy Treatment Note PT-OP-A Visit Information Start: 06/01/24 15:19 Freq: Status: Active Protocol: Document 06/24/24 10:47 SP (Rec: 06/24/24 11:34 SP [id number]) Out-Patient Physical Therapy Visit Information Visit Information Visit Type Treatment Note Visit Note 3/6 visits approved by Michelle . Visit Start Time 10:47 Visit Stop Time 11:27 Visit Number 5 Number of GYROSCOPIC INSTRUMENT MECHANIC Visits 1 Evaluation Information Evaluation Date 06/02/24 Precautions Precautions Fibromyalgia, cervical and lumbar fusions, L bunion surgery PT-OP-B Current Condition Start: 06/01/24 15:19 Freq: Status: Active Protocol: Document 06/02/24 12:57 NM (Rec: 06/02/24 13:46 NM [id number]) Current Condition History of Current Condition Onset Date Summer 2023 Current Complaints pain, limited mobility ronald ambulation, poor strength History of Current Condition Pt reports that she has plantar fasciitis in her L foot since the beginning of Summer after she was walking. She had an injection in April , but did not help. She reports that MD also gave her exercises (calf stretch in standing, rolling on ice, massage). She reports that she was put in a boot for a month , 30/03. She sleeps on her L side. She then followed up with the bit sharpener this past week, follow up in 3 weeks. She reports that she recently adopted a dog so she would walk every day. Pt is wanting to lose weight, unable to since walking is limited. She is trying to talk herself into swimming. Pt reports heel pain. She also had a night splint, but this prevented her from sleeping and then started hurting on dorsal surface. States that numbness on dorsal foot only occurs in splints. Pt also has fibromyalgia, reports has to be deep tissue to last longer. Has PMH of plantar fasciitis on her R foot 10 years ago. She states that she was hoping for manipulation/massage. Pt recently got new shoes and superfeet insole (was wearing vionic before), heel cup. She has not been wearing the heel cup. Has compression sleeve as well from Dr. Mosquera. Has been taping (K tape), but reports feels like sleeve. States that also has chronic back problems. Planning on starting up swimming. Hx of 3 level neck fusion, spontaneous lumbar fusion. 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 Saw Dr Mosquera at [facility] . Gave her an injection in plantar surface with noticably better motion and pain reduction. Had order an xray to see if injecting dorsal surface. stated does feel swelling still in bursa. Follow up appt 07/07. states uses compression sock and notices same support and able walk dog with no pain near beach. Pt states has her HEP and feel helping, wants next tx last tx and continue on own , high copay. PT-OP-E Functional Tests Start: 06/01/24 15:19 Freq: Status: Active Protocol: Document 06/02/24 12:57 NM (Rec: 06/02/24 13:46 NM [id number]) Functional Tests Other Dorsiflexion Test Name of Test measured in standing (modified ) to wall, toes are 4 fingers from wall Score 1 cm Comment on L PT-OP-F Manual Assessment Start: 06/01/24 15:19 Freq: Status: Active Protocol: Document 06/02/24 12:57 NM (Rec: 06/02/24 13:46 NM [id number]) Manual Assessments Soft Tissue Assessment Soft Tissue Mobility Assessment Thickened L Achilles, calf tightness Joint Mobility Assessment Joint Mobility Assessment Decreased L foot mobility, ronald 1st toe, midfoot, and calcaneus. No ankle instability PT-OP-G Mobility & Gait Start: 06/01/24 15:19 Freq: Status: Active Protocol: Document 06/02/24 12:57 NM (Rec: 06/02/24 15:39 NM [id number]) OP Gait Assessment Gait Gait Assistance Required: Independent Distance (Feet) 150 Assistive Devices Assistive Device None Gait Deviations General Gait Pattern Antalgic Factors Limiting Gait Function Factors Limiting Gait Function Decreased Activity Tolerance, Decreased Sensation,Decreased Strength,Pain Comments Gait Comments Less stance time on RLE PT-OP-H Neuro Start: 06/01/24 15:19 Freq: Status: Active Protocol: Document 06/02/24 12:57 NM (Rec: 06/02/24 13:46 NM [id number]) Sensation Evaluation Comments Summary Comments BLE intact to light touch sensation equally except for L dorsal/lateral/plantar foot. Decreased sharp/dull sensation on L dorsal and plantar foot PT-OP-J Posture/Palpation/Skin Start: 06/01/24 15:19 Freq: Status: Active Protocol: Document 06/02/24 12:57 NM (Rec: 06/02/24 15:39 NM [id number]) Posture Evaluation Position Standing Head/C-Spine Posture Forward Head T-Spine Posture Increased Kyphosis Shoulder Posture (L) Rounded,(R) Rounded Arm Posture (L) Internally Rotated,(R) Internally Rotated Pelvis Posture Anteriorly Tilted Weight Distribution Weight Shifted Right Hip Posture (L) Externally Rotated,(R) Externally Rotated Knee Posture (L) Genu Valgus,(R) Genu Valgus Ankle/Foot Posture (L) Calcaneal Eversion,(R) Calcaneal Eversion Foot Arch (L) Medium Arch,(R) Medium Arch Palpation Assessment Location L foot Palpation Findings Soft Tissue Tightness Palpation Details No tenderness along arch, plantar fascia, heel Thickened L achilles Skin Assessment Incisional Assessment Incision Appearance/Comments Incision present along L 1st toe due to previous bunion surgery PT-OP-K Range of Motion Start: 06/01/24 15:19 Freq: Status: Active Protocol: Document 06/08/24 12:59 NM (Rec: 06/08/24 13:47 NM [id number]) Ankle and Foot Goniometric Range of Motion Ankle and Foot Right Dorsiflexion with Knee Flexed 15 Plantarflexion 45 Inversion 30 Eversion 20 Left Dorsiflexion with Knee Flexed 3 Plantarflexion 40 Inversion 10 Eversion 20 Comments 06/08/24: 4 deg of DF, PT-OP-L Special Tests Start: 06/01/24 15:19 Freq: Status: Active Protocol: Document 06/02/24 12:57 NM (Rec: 06/02/24 13:46 NM [id number]) Special Tests Foot/Ankle Special Tests Windlass Test Results + PT-OP-M Strength Start: 06/01/24 15:19 Freq: Status: Active Protocol: Document 06/08/24 12:59 NM (Rec: 06/08/24 13:47 NM [id number]) Hip Strength Hip Manual Muscle Testing Right Flexion (L2) 4 Good Extension (S1) 4 Good Abduction 4 Good Adduction 4 Good External Rotation 4 Good Internal Rotation 4 Good Left Flexion (L2) 4- Good- Extension (S1) 4- Good- Abduction 4- Good- Adduction 4- Good- External Rotation 4- Good- Internal Rotation 4- Good- Ankle/Foot Strength Ankle and Foot Manual Muscle Testing Right Dorsiflexion (L4) 5 Normal Plantarflexion (S1) 3 Fair Inversion 5 Normal Eversion (S1) 5 Normal Comments unable to do 1 single leg heel raise in stading; can perform 5 B heel raises; plantarflexion tested in sitting Left Dorsiflexion (L4) 4 Good Plantarflexion (S1) 3 Fair Inversion 4 Good Eversion (S1) 4 Good Comments unable to do 1 single leg heel raise in standing; can perform 5 B heel raises; plantarflexion tested in sitting PT-OP-Q Treatments Start: 06/01/24 15:19 Freq: Status: Active Protocol: Document 06/24/24 10:47 SP (Rec: 06/24/24 11:34 SP [id number]) Therapeutic Exercises Sitting Exercises sit to stand Sitting Exercise Name buttock tap Side bilateral Resistance level 3 band at thighs Reps/Minutes 10 Comments cued more hip hinge; pain free at foot toe extension Sitting Exercise Name trialed- DC Reps/Minutes 3 reps then nerve awareness sensation Comments discussed performance up to 10 reps no nerve pain. ankle dorsiflexion Sitting Exercise Name DF (crossed over leg in ER), EV, inv (same as DF) (declines HO) Side bilateral Resistance level 2 Reps/Minutes x10 each Comments cued slow painfree and no nerve pain free motion & reps- stopped at 10 foot instrinsics Sitting Exercise Name towel scrunch: 1. inversion, 2 . eversion; 3. towel scrunch ( HEP- denies HO Side left Reps/Minutes x12 reps Comments pain free; no neural feeling if squeezes less hard Standing Exercises SLS Standing Exercise Name added to HEP /c HO Side left Equipment Used PRN counter as needed nearby Reps/Minutes 15 SH (instructed work up to 30 sec) Comments little sways but no pain step up Standing Exercise Name 6 step up- added to HEP /c HO Side bilateral Equipment Used near rail contact, not needed Reps/Minutes 15 ea Comments cued COG over DRE, pnfree heel raise Standing Exercise Name 1. eccentric off 2nd step (B), 2. gastroc (floor), 3. soleus (floor) Side bilateral Equipment Used hand support on rail Reps/Minutes 1. 10 ea, 2. 2x10 ea Comments pain free Manual Therapy Treatment Consent Patient gave verbal consent for manual Yes treatment Soft Tissue Mobilization L ankle/foot Body Location calf, plantar fascia Mobilization Type Rolling,Other Intensity/Depth Moderate Body Position Supine Comments Fanning glides, over calf, peroneals. Monitored and adjusted pressure for pain. Joint Mobilizations L ankle/foot Joint talocrural Direction AP Grade II Body Position Hooklying Reps/Duration supine Comments To improve ankle and foot mobility. Monitored for pain. Taping ktaping Body Location L plantar fascia Treatment Focus arch support Type of Tape Kinesio Tape Comments 2 strips: base MTPs to calcaneus 50% tension and perpendicular full tension plantar surface then lay down side foot .good response, states uses compression sock and notices same support and able walk dog with no pain near beach. PT-OP-T Assessment and Plan Start: 06/01/24 15:19 Freq: Status: Active Protocol: Document 06/24/24 10:47 SP (Rec: 06/24/24 11:34 SP [id number]) Physical Therapy Assessment Goals Five Impairment ambulation distance limited due to pain Long-Term Goal (LTG) If appropriate, pt will report that she is able to ambulate at least 1 mile without increase in L foot pain in order to be able to walk her dog LTG Duration 12 weeks Four Impairment limitations in activity tolerance with standing/ ambulation for work Long-Term Goal (LTG) Pt will report that she is able to stand for >45 minutes without increase in L foot pain in order to be able to perform ADLs and work related tasks LTG Duration 12 weeks Three Impairment L ankle strength limited Short Term Goal (STG) Pt will be able to perform at least 10 B heel raises without compensation or limitations due to L plantar pain in order to improve strength for gait and standing tolerance STG Duration 6 weeks Long-Term Goal (LTG) If appropriate, pt will be able to perform at least 1 single leg heel raise without compensation or limitations due to L plantar pain in order to improve strength for gait and standing tolerance LTG Duration 12 weeks Two Impairment L foot AROM limited: L dorsiflexion and inversion limited Short Term Goal (STG) Pt will improve L ankle dorsiflexion to >5 deg AROM and L ankle inversion >20 deg AROM in order to improve L ankle mobility for gait and stance STG Duration 6 weeks Physician Relations Specialist Goal (LTG) Pt will improve L ankle dorsiflexion to >10 deg AROM and L ankle inversion >25 deg AROM in order to improve L ankle mobility for gait and stance LTG Duration 12 weeks One Impairment not performing regular exercise or HEP Short Term Goal (STG) Pt will report compliance with HEP at least 3x/wk in order to maximize progression with PT STG Duration 3 weeks Physician Relations Specialist Goal (LTG) Pt will report compliance with HEP at least 3x/wk in order to transition to maintenance program to promote better health and activity habits for pt's weight loss journey LTG Duration 12 weeks Assessment Summary Assessment Pt good response to manual, ktaping for plantar fascia support. Reviewed seated resisted ex with better demonstration return set up for ankle and added step ups for home and SLs with HO. No reports of pain throughout tx . Consider DC next tx. Physical Therapy Plan Frequency and Duration Frequency of Treatment 1-2x/wk Duration of treatment (weeks) 12 Plan of Care Start Date 06/02/24 Plan of Care End Date 08/26/24 Therapeutic Interventions Therapeutic Interventions Balance Training,Gait Training ,Home Exercise Program,Joint Mobilizations,Manual Therapy, Neuromuscular Re-education, Orthotic/Prosthetic Management ,Patient/Caregiver Education, Self-Care/Home Management, Sensory Integration,Soft Tissue Mobilization,Taping, Therapeutic Activities, Therapeutic Exercises Modalities Cold Pack/Ice Massage,Electric Stimulation,Hot Packs Other Therapeutic Interventions No grade IV mobilizations due to osteopenia/osteoporosis Next Visit Focus/Plan Next Note Type Discharge Summary Next Visit Plan Review HEP as needed. Possible DC next tx with continue self HEP per pt request. Add side step and uneven surface next tx. Cont w/ heel raises and banded ankle inv/ev, trial ankle DF in standing. hip and ankle strengthening and proprioception Ankle/foot mobilizations and soft tissue mobilizations ( moderate-deep)- avoid 1st metatarsal/medial tarsals d/t surgical hx
--- NOTE | 2024-06-28 15:22 | PT.OTN ---
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 Visit Start Time 13:00 Visit Stop Time 13:43 Visit Number 6 Evaluation Information Evaluation Date 06/02/24 Precautions Precautions Fibromyalgia, cervical and lumbar fusions, L bunion surgery PT-OP-B Current Condition Start: 06/01/24 15:19 Freq: Status: Active Protocol: Document 06/02/24 12:57 NM (Rec: 06/02/24 13:46 NM [id number]) Current Condition History of Current Condition Onset Date Summer 2023 Current Complaints pain, limited mobility ronald ambulation, poor strength History of Current Condition Pt reports that she has plantar fasciitis in her L foot since the beginning of Summer after she was walking. She had an injection in April , but did not help. She reports that MD also gave her exercises (calf stretch in standing, rolling on ice, massage). She reports that she was put in a boot for a month , 30/03. She sleeps on her L side. She then followed up with the certified court/medical interpreter this past week, follow up in 3 weeks. She reports that she recently adopted a dog so she would walk every day. Pt is wanting to lose weight, unable to since walking is limited. She is trying to talk herself into swimming. Pt reports heel pain. She also had a night splint, but this prevented her from sleeping and then started hurting on dorsal surface. States that numbness on dorsal foot only occurs in splints. Pt also has fibromyalgia, reports has to be deep tissue to last longer. Has PMH of plantar fasciitis on her R foot 10 years ago. She states that she was hoping for manipulation/massage. Pt recently got new shoes and superfeet insole (was wearing vionic before), heel cup. She has not been wearing the heel cup. Has compression sleeve as well from Dr. Mosquera. Has been taping (K tape), but reports feels like sleeve. States that also has chronic back problems. Planning on starting up swimming. Hx of 3 level neck fusion, spontaneous lumbar fusion. 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 Got an injection last , which helps. Will be getting another injection next week. Pt reports co-pay too high to continue with PT, wants to discharge today from PT. She wants to continue with strengthening and stretching at home. She reports that she is starting to walk more PT-OP-E Functional Tests Start: 06/01/24 15:19 Freq: Status: Active Protocol: Document 06/02/24 12:57 NM (Rec: 06/02/24 13:46 NM [id number]) Functional Tests Other Dorsiflexion Test Name of Test measured in standing (modified ) to wall, toes are 4 fingers from wall Score 1 cm Comment on L PT-OP-F Manual Assessment Start: 06/01/24 15:19 Freq: Status: Active Protocol: Document 06/02/24 12:57 NM (Rec: 06/02/24 13:46 NM [id number]) Manual Assessments Soft Tissue Assessment Soft Tissue Mobility Assessment Thickened L Achilles, calf tightness Joint Mobility Assessment Joint Mobility Assessment Decreased L foot mobility, ronald 1st toe, midfoot, and calcaneus. No ankle instability PT-OP-G Mobility & Gait Start: 06/01/24 15:19 Freq: Status: Active Protocol: Document 06/02/24 12:57 NM (Rec: 06/02/24 15:39 NM [id number]) OP Gait Assessment Gait Gait Assistance Required: Independent Distance (Feet) 150 Assistive Devices Assistive Device None Gait Deviations General Gait Pattern Antalgic Factors Limiting Gait Function Factors Limiting Gait Function Decreased Activity Tolerance, Decreased Sensation,Decreased Strength,Pain Comments Gait Comments Less stance time on RLE PT-OP-H Neuro Start: 06/01/24 15:19 Freq: Status: Active Protocol: Document 06/02/24 12:57 NM (Rec: 06/02/24 13:46 NM [id number]) Sensation Evaluation Comments Summary Comments BLE intact to light touch sensation equally except for L dorsal/lateral/plantar foot. Decreased sharp/dull sensation on L dorsal and plantar foot PT-OP-J Posture/Palpation/Skin Start: 06/01/24 15:19 Freq: Status: Active Protocol: Document 06/02/24 12:57 NM (Rec: 06/02/24 15:39 NM [id number]) Posture Evaluation Position Standing Head/C-Spine Posture Forward Head T-Spine Posture Increased Kyphosis Shoulder Posture (L) Rounded,(R) Rounded Arm Posture (L) Internally Rotated,(R) Internally Rotated Pelvis Posture Anteriorly Tilted Weight Distribution Weight Shifted Right Hip Posture (L) Externally Rotated,(R) Externally Rotated Knee Posture (L) Genu Valgus,(R) Genu Valgus Ankle/Foot Posture (L) Calcaneal Eversion,(R) Calcaneal Eversion Foot Arch (L) Medium Arch,(R) Medium Arch Palpation Assessment Location L foot Palpation Findings Soft Tissue Tightness Palpation Details No tenderness along arch, plantar fascia, heel Thickened L achilles Skin Assessment Incisional Assessment Incision Appearance/Comments Incision present along L 1st toe due to previous bunion surgery PT-OP-K Range of Motion Start: 06/01/24 15:19 Freq: Status: Active Protocol: Document 06/28/24 12:56 NM (Rec: 06/28/24 13:45 NM [id number]) Ankle and Foot Goniometric Range of Motion Ankle and Foot Right Dorsiflexion with Knee Flexed 15 Plantarflexion 45 Inversion 30 Eversion 20 Left Dorsiflexion with Knee Flexed 8 Plantarflexion 40 Inversion 30 Eversion 20 Comments IE: 3 deg ankle DF, 40 deg PF, 10 deg inversion, 20 deg eversion 06/08/24: 4 deg of DF, 06/28/24: 8 deg DF, 40 deg PF, 20 deg eversion, 30 deg inversion PT-OP-L Special Tests Start: 06/01/24 15:19 Freq: Status: Active Protocol: Document 06/02/24 12:57 NM (Rec: 06/02/24 13:46 NM [id number]) Special Tests Foot/Ankle Special Tests Windlass Test Results + PT-OP-M Strength Start: 06/01/24 15:19 Freq: Status: Active Protocol: Document 06/28/24 12:56 NM (Rec: 06/28/24 13:45 NM [id number]) Ankle/Foot Strength Ankle and Foot Manual Muscle Testing Right Dorsiflexion (L4) 5 Normal Plantarflexion (S1) 3 Fair Inversion 5 Normal Eversion (S1) 5 Normal Comments unable to do 1 single leg heel raise in stading; can perform 5 B heel raises; plantarflexion tested in sitting Left Dorsiflexion (L4) 4+ Good+ Plantarflexion (S1) 3 Fair Inversion 4+ Good+ Eversion (S1) 4+ Good+ Comments unable to do 1 single leg heel raise in standing; can perform 5 B heel raises; plantarflexion tested in sitting 06/28/24: 4+/5, no pain; performed 5 single leg heel raises with small ROM, PF tested in sitting PT-OP-Q Treatments Start: 06/01/24 15:19 Freq: Status: Active Protocol: Document 06/28/24 12:56 NM (Rec: 06/28/24 13:45 NM [id number]) Therapeutic Exercises Sitting Exercises ankle dorsiflexion Sitting Exercise Name Eversion, inv (same as DF)- already has HO Side bilateral Resistance level 3 band Reps/Minutes 20 ea Comments cued slower for control; issued level 4 band for maintenance Standing Exercises side steps Side bilateral Resistance level 2 band below knees Reps/Minutes 3x15 ft ea Comments pain free; cued neutral hip, improved w/ reps single leg heel raise Side bilateral Equipment Used wall for support Reps/Minutes 2x5 ea Comments limited ROM but toe raise Standing Exercise Name ankle dorsiflexion Side bilateral Equipment Used back at wall Reps/Minutes 20 ea Comments cued max ROM and control w/ eccentric heel raise Standing Exercise Name 1. eccentric off 2nd step (B), 2. gastroc (floor), 3. soleus (floor) Side bilateral Equipment Used hand support on rail Reps/Minutes 1. did not perform #1 (HEP), 2 . 15 ea 2/ 2# ball, 3. 15 ea w / 2# ball Comments pain free; cued no rocking calf stretch Standing Exercise Name 1. soleus in staggered, 2. stairs for gastrocnemius Side left Equipment Used rail support Reps/Minutes 30 ea Comments good stretch response- HEP review Manual Therapy Treatment Consent Patient gave verbal consent for manual Yes treatment Soft Tissue Mobilization L ankle/foot Body Location calf, plantar fascia Mobilization Type Rolling,Other Intensity/Depth Moderate Body Position Supine Comments Fanning glides, over calf, peroneals. Monitored and adjusted pressure for pain. Self-Care/Home Management Treatment Education Patient Education Home Exercise Program Other Education Issued level 4 band for ankle DF, inversion, eversion when 3x15 of levelock band too easy Educated on progression of teal #2 band from below knees > ankles for side steps, then progression to above knees with next level band (levelock) PT-OP-T Assessment and Plan Start: 06/01/24 15:19 Freq: Status: Active Protocol: Document 06/28/24 12:56 NM (Rec: 06/28/24 13:45 NM [id number]) Physical Therapy Assessment Goals Five Impairment ambulation distance limited due to pain Mcfp Goal (LTG) If appropriate, pt will report that she is able to ambulate at least 1 mile without increase in L foot pain in order to be able to walk her dog 06/27/24: pt reports able to ambulate at least 1/2 a mi, has not attempted more than 1 mi ambulation; 30 min is max. However, states that she has less pain with ambulation in her foot right now LTG Duration 12 weeks NOT MET Four Impairment limitations in activity tolerance with standing/ ambulation for work Aerodynamic Consultant Goal (LTG) Pt will report that she is able to stand for >45 minutes without increase in L foot pain in order to be able to perform ADLs and work related tasks 06/28/24: pt reports that she can stand about 45 minutes without increase in L foot pain, more back pain LTG Duration 12 weeks MET Three Impairment L ankle strength limited Short Term Goal (STG) Pt will be able to perform at least 10 B heel raises without compensation or limitations due to L plantar pain in order to improve strength for gait and standing tolerance 06/28/24: can perform multiple sets of heel raises B w/o pain in foot STG Duration 6 weeks MET Mcfp Goal (LTG) If appropriate, pt will be able to perform at least 1 single leg heel raise without compensation or limitations due to L plantar pain in order to improve strength for gait and standing tolerance 06/28/24: 5 single leg heel raises on L foot w/o increase in foot pain; limited ROM LTG Duration 12 weeks MET; PROGRESSING Two Impairment L foot AROM limited: L dorsiflexion and inversion limited Short Term Goal (STG) Pt will improve L ankle dorsiflexion to >5 deg AROM and L ankle inversion >20 deg AROM in order to improve L ankle mobility for gait and stance STG Duration 6 weeks Mcfp Goal (LTG) Pt will improve L ankle dorsiflexion to >10 deg AROM and L ankle inversion >25 deg AROM in order to improve L ankle mobility for gait and stance 06/28/24: 8 deg dorsiflexion, 30 deg inversion LTG Duration 12 weeks PARTIALLY MET One Impairment not performing regular exercise or HEP Short Term Goal (STG) Pt will report compliance with HEP at least 3x/wk in order to maximize progression with PT STG Duration 3 weeks Mcfp Goal (LTG) Pt will report compliance with HEP at least 3x/wk in order to transition to maintenance program to promote better health and activity habits for pt's weight loss journey 06/28/24: performing HEP daily or as prescribed LTG Duration 12 weeks MET Progress Towards Goals Progress Towards Goals Progressing Toward Goals,Slow Progress due to Medical Issues ,Goals Met Assessment Summary Assessment Pt tolerated session well, no L plantar pain but reports fatigue at end of all therapeutic exercises. Emphasis on establishing maintenance HEP because pt requesting to discharge from PT today. Trialed single leg heel raises for goals; able to perform without pain at lower depth and low reps. Pt flexing knees like squat during soleus raise, moderate cues for correct execution. Progressed to resisted heel raises on stable surface, which pt tolerated well. No plantar pain, no nerve pain on anterior foot. Initiated side steps for ankle stability and proximal strengthening. Educated on band progression ( resistance) and position depending on pt tolerance. Physical Therapy Plan Frequency and Duration Frequency of Treatment 1-2x/wk Duration of treatment (weeks) 12 Plan of Care Start Date 06/02/24 Plan of Care End Date 08/26/24 Therapeutic Interventions Therapeutic Interventions Balance Training,Gait Training ,Home Exercise Program,Joint Mobilizations,Manual Therapy, Neuromuscular Re-education, Orthotic/Prosthetic Management ,Patient/Caregiver Education, Self-Care/Home Management, Sensory Integration,Soft Tissue Mobilization,Taping, Therapeutic Activities, Therapeutic Exercises Modalities Cold Pack/Ice Massage,Electric Stimulation,Hot Packs Other Therapeutic Interventions No grade IV mobilizations due to osteopenia/osteoporosis Discharge Physical Therapy Discharge Reasons Patient Request Discharge Comments Pt requesting discharge from PT at this time. States that her co-pay is too high for her to continue. Wants to discharge to maintenance program with strengthening and stretching to manage symptoms . Planning to follow up with referring provider next week for second injection. Pt will need new referral to return to PT. Next Visit Focus/Plan Next Note Type Discharge Summary Next Visit Plan discharge from PT
== END 2024-07-01 13:51 | disposition home or self-care (01) ==
LOC: PHYS 13:00
PROVIDERS: Family Provider Family Medicine; PCP Family Medicine; Referring Provider Podiatrist Foot & Ankle Surgery; Visit Provider Podiatrist Foot & Ankle Surgery
DX: M72.2 Plantar fascial fibromatosis (principal); M25.672 Stiffness of left ankle, not elsewhere classified; M25.675 Stiffness of left foot, not elsewhere classified; R53.1 Weakness; R27.8 Other lack of coordination
CPT/HCPCS: 97110; 97140; 97161

== ENCOUNTER 2024-10-13 12:44 | Day surgery (SDC) | payer MEDICARE, SELFPAY ==
--- NOTE | 2024-10-13 | PATH_ITS ---
[facility] Accession Number: [id number] No. of containers..01 Tissue . 01 Material submitted: . colon - TRANSVERSE COLON POLYP . 01 Diagnosis: TRANSVERSE COLON POLYP: Benign submucosal leiomyoma. STO 10/18/2024 1149 Local . 01 Electronically signed: . Nain Simms MD, Pathologist NPI- [id number] . 01 Gross description: . Received in formalin with two patient identifiers and transverse colon polyp, is a single padilla soft tissue fragment, 0.6 cm in greatest dimension, submitted in A1. ([id number]) /MRV 10/18/2024 1149 Local . 01 Microscopic: . TRANSVERSE COLON POLYP: There is normal appearing colonic mucosa with an underlying submucosal nodule composed of whorled bands and bundles of spindled cells. There is no significant nuclear atypia or increase in mitotic activity. The spindled cells are positive for SMA and negative for DOG1 by immunostain*, supporting a diagnosis of leiomyoma and providing no evidence of gastrointestinal stromal tumor. All controls stain as expected. . * This test was developed and the performance characteristics were validated by [employer]. It has not been cleared or approved by the Food and Drug Administration. . 01 Pathologist provided ICD-10: D12.3 . 01 CPT . 741863, X34222, A98269 Specimen Comment: A courtesy copy of this report has been sent to [phone] Performed at: [address] [id number] MD Nain Simms MD Phone: [phone]
[2024-10-13 13:29] VITALS: BP 128/79; PULSE 94; RESP 20; TEMP 36.1; O2SAT 95
[2024-10-13] MEDS: LACTATED RINGERS 1,000 ML 42 ML IV (13:29)
--- NOTE | 2024-10-13 13:48 | P.HP_ITS ---
History of Present Illness History of Present Illness Date Patient Seen: 10/13/24 Time Patient Seen: 13:49 [place] [facility]arrative: Ines is a 64 year old woman with hemorrhoids here for colonoscopy and rubber band ligation. See office note for details. [facility] Medical History (Updated 09/12/24 @ 14:07 by Vickey Wang MD) Hemorrhoids History of thyroid cancer Endometrial thickening on ultrasound (~12/04/21) Internal hemorrhoids Osteoarthritis (~1999) Osteoporosis Finger fracture (~2013) Chronic back pain Cervical spine disease Chicken pox (~1964) Fibroids Irritable bowel syndrome Thyroid cancer Eczema (~1974) Fibromyalgia (~2011) Anxiety (~2014) Restless leg syndrome HTN (hypertension) Surgical History (Updated 12/04/23 @ 16:16 by Ela Murphy DO) S/P subtotal parathyroidectomy Anesthesia Pilonidal cyst (~1989) History of section (~2004) History of bunionectomy (~2004) History of appendectomy (~2011) History of thyroidectomy (~2015) S/P cervical spinal fusion (~2012) Family History Father Cancer Hypertension Mother Hypertension Brother History of heart disease Social History Smoking Status: Former smoker alcohol intake: current Meds Home Medications and Allergies Home Medications Medication Instructions Recorded Confirmed Type triamcinolone acetonide 0.5 % 1 applic topical BID finger eczema 01/09/23 10/13/24 Rx topical ointment #60 grams vit D3 50 mcg-vitamin K1 500 cap PO 01/09/23 09/12/24 History mcg-MK4 1,500 mcg-MK7 180 mcg capsule pramipexole 0.5 mg tablet 0.5 mg PO BEDTIME #90 tabs 12/04/23 10/13/24 Rx fluoxetine 40 mg capsule 40 mg PO DAILY #90 caps 12/24/23 10/13/24 Rx lisinopril 10 mg tablet 10 mg PO DAILY #90 tabs 02/11/24 10/13/24 Rx levothyroxine 112 mcg tablet 112 mcg PO DAILY #90 tabs 03/08/24 10/13/24 Rx celecoxib 200 mg capsule 200 mg PO DAILY PRN pain #90 caps 07/25/24 10/13/24 Rx melatonin 5 mg tablet 10 mg PO DAILY sleep 09/08/24 10/13/24 History Allergies Allergy/AdvReac Type Severity Reaction Status Date / Time No Known Drug Allergies Allergy Verified 10/13/24 13:26 Exam Vital Signs (past 8 hours): - 10/13/24 13:29 Temperature 97.0 F L Pulse Rate 94 H Respiratory Rate 20 Blood Pressure 128/79 Pulse Oximetry 95 Oxygen Delivery Method Room Air Oxygen Delivery Method Room Air Const General: No acute distress Assessment & Plan Assessment and plan (1) Thrombosed external hemorrhoid: Status: Acute Plan Colonoscopy Time-Based Coding :: [TOTAL MINUTES] spent with patient and on the chart (including review of chart, obtaining history, exam, reviewing outside data, placing orders, documenting exam and treatment plan, and counseling patient) on [DATE]. [employer] Education Finance Processor Document charge(s): No
[2024-10-13 15:00] VITALS: BP 98/74; PULSE 97; RESP 12; TEMP 36.6; O2SAT 94
--- NOTE | 2024-10-13 15:01 | PM.OP.COLON ---
Operative Date/Time/Diagnoses Date of procedure: 10/13/24 Time of procedure: 15:01 Pre-op diagnosis: Rectal bleeding Post-op diagnosis: same Procedure & Clinicians Study performed: Colonoscopy rubber-band ligation of hemorrhoids Same procedure as scheduled: Yes Surgeon: Vickey Wang Procedure Notes Procedure in detail: Surgeon: Vickey Wang MD Anesthesia: Tanya Sidhu NET MVC DEVELOPER Procedure: The patient was brought to the endoscopy suite, placed in left lateral decubitus position. The patient was connected to monitoring devices. A time-out was performed. Sedation was administered. Once the patient was adequately sedated, a digital rectal exam was performed and was normal. The scope was then inserted and advanced to the cecum where the appendiceal orifice was identified and photographed. The scope was then slowly withdrawn over greater than 6 minutes. The mucosa was thoroughly inspected. There was a 5 mm polyp in the mid transverse colon removed with a cold snare. The scope was retroflexed in the rectum. Internal hemorrhoids were noted. The scope was straightened and removed. We then performed rubber-band ligation of right lateral and left lateral internal hemorrhoidal columns. The patient was awakened and brought to recovery. Scope withdrawal time: 7 minutes Sedation time: 15 minutes EBL: 5 mL Findings: 5 mm transverse colon polyp and internal hemorrhoids Post-procedure Disposition: PACU
[2024-10-13 15:05] VITALS: BP 133/72; PULSE 97; RESP 18; O2SAT 96
[2024-10-13 15:10] VITALS: BP 110/78; PULSE 89; RESP 16; O2SAT 99
== END 2024-10-13 15:26 | disposition home or self-care (01) ==
PROVIDERS: Family Provider Family Medicine; PCP Family Medicine; Referring Provider Surgery; Visit Provider Surgery
PROC: 0DJD8ZZ Inspection of Lower Intestinal Tract, Via Natural or Artificial Opening Endoscopic (ICD-10-PCS; CPT 45378; principal; 2024-10-13 14:00)
DX: K62.5 Hemorrhage of anus and rectum (principal); K64.8 Other hemorrhoids; D12.3 Benign neoplasm of transverse colon
CPT/HCPCS: 45385; 46221; J2704

== ENCOUNTER → 2025-02-02 09:07 | Outpatient (CLI) | payer MEDICARE, SELFPAY ==
[2025-02-02 10:50] LABS: Add Manual Diff / Slide Review NO; Basophils Absolute Auto 0 /uL (0-100); Basophils Percent Auto 0.2 % (0-2); Eosinophils Absolute Auto 0 /uL (0-450); Eosinophils Percent Auto 0.5 % (2-4); Hematocrit 44.9 % (36-46); Hemoglobin 15.6 g/dL (12.0-16.0); Lymphocytes Absolute Auto 1300 /uL (1100-4500); Lymphocytes Percent Auto 26.8 % (25-40); Mean Corpuscular HGB Conc 34.8 % (30-36); Mean Corpuscular Hemoglobin 33.5 PG (26-34); Mean Corpuscular Volume 96.5 fL (80-100); Monocytes Absolute Auto 500 /uL (0-900); Monocytes Percent Auto 10.4 % (3-14); Neutrophils Absolute Auto 2900 /uL (1500-7000); Neutrophils Percent Auto 62.1 % (50-75); Platelet Count 146 X10^3/uL (150-400); Red Blood Cell Count 4.65 X10^6/uL (4.0-5.2); Red Cell Distribution Width 14.1 % (11.6-14.8); White Blood Cell Count 4.7 X10^3/uL (4.5-11.0)
[2025-02-02 11:30] LABS: Alanine Aminotransferase 20 IU/L (<35); Albumin 4.7 g/dL (3.5-5.0); Alkaline Phosphatase 84 U/L (38-126); Aspartate Aminotransferase 22 IU/L (14-36); BUN Creatinine Ratio 14.9 (6-22); Blood Urea Nitrogen 11 mg/dL (7-17); Calcium 9.7 mg/dL (8.4-10.2); Carbon Dioxide 23 mmol/L (22-32); Chloride 103 mmol/L (98-107); Estimated Glomerular Filt Rate > 60 mL/min (>60); Globulin 2.4 g/dL (1.7-4.1); Glucose 102 mg/dL (70-99); HEMOLYSIS < 15 (0-50); Potassium 4.6 mmol/L (3.4-5.1); Sodium 139 mmol/L (137-145); Total Protein 7.1 g/dL (6.3-8.2)
[2025-02-02 11:44] LABS: Free T3, Triiodothyronine Free 3.51 pg/mL (2.77-5.27); Free T4, Direct Thyroxine 1.35 ng/dL (0.78-2.19)
[2025-02-02 11:58] LABS: Thyroid Stimulating Hormone 3.63 uIU/mL (0.47-4.68)
[2025-02-02 12:26] LABS: Creatinine Urine Random 137.12 mg/dL
[2025-02-02 12:31] LABS: Microalbumin Urine Random 0.9 mg/dL (0-1.6)
[2025-02-03 10:09] LABS: Calcium 9.3 mg/dL (8.7-10.3); Parathyroid Hormone, Intact 36 pg/mL (15-65)
== END ==
PROVIDERS: PCP Student in an Organized Health Care Education/Training Program; Referring Provider Student in an Organized Health Care Education/Training Program; Visit Provider Student in an Organized Health Care Education/Training Program
DX: I10 Essential (primary) hypertension (principal); Z98.890 Other specified postprocedural states; Z90.89 Acquired absence of other organs
CPT/HCPCS: 80053; 82043; 82310; 82570; 83970; 84439; 84443; 84481; 85025

== ENCOUNTER → 2025-08-11 08:18 | Outpatient (CLI) | payer MEDICARE, SELFPAY ==
[2025-08-11 09:07] LABS: Add Manual Diff / Slide Review NO; Hematocrit 44.4 % (36-46); Hemoglobin 15.3 g/dL (12.0-16.0); Lymphocytes Absolute Auto 1300 /uL (1100-4500); Mean Corpuscular HGB Conc 34.4 % (30-36); Mean Corpuscular Hemoglobin 33.5 PG (26-34); Mean Corpuscular Volume 97.2 fL (80-100); Platelet Count 152 X10^3/uL (150-400)
== END ==
PROVIDERS: PCP Student in an Organized Health Care Education/Training Program; Referring Provider Student in an Organized Health Care Education/Training Program; Visit Provider Student in an Organized Health Care Education/Training Program
DX: D69.6 Thrombocytopenia, unspecified (principal)
CPT/HCPCS: 36415; 85025